=== PATIENT | male | born 1930 | race Caucasian/White ===

== ENCOUNTER 2017-06-13 13:37 | Inpatient (IN) | payer MEDICARE, MEDICAID ==
[~2017-06-13] VITALS: Ht 173 cm; Wt 69.0 kg
--- NOTE | ~2017-06-13 | PR ---
[place], [place] PROGRESS NOTE NAME: MINAL MICHELLE UNIT #: [id number] ROOM: 404 DOCTOR: BERNARDINO GHOSH MD BIRTHDATE: [birth year] DOS: 06/19/2017 PULMONARY PROGRESS NOTE SUBJECTIVE: The patient has been noted comfortable at this time without any distress. Shortness of breath continues to resolve. The patient has been noted with minimal cough. There were no symptoms of chest pain. OBJECTIVE: VITAL SIGNS: For the patient which were recorded showed normal temperature, respiratory rate 20, heart rate 70, blood pressure 132/64. Pulse oxygen saturation on room air was noted 98% saturation at this time. HEENT: Examination showed no new change. NECK: Supple. CARDIOVASCULAR: S1, S2 audible. LUNGS: The patient was noted without any wheezing, minimal crackles noted in lung bases bilaterally, more on the left than the right side. ABDOMEN: Soft. Nontender. LABORATORY DATA: CMP today, BUN 28, creatinine 1.48. CBC this morning was noted hemoglobin of 11.4, hematocrit 34.6, WBC count and platelet count was normal. IMPRESSION: 1. The patient who has been currently noted with progressive improvement in the acute hypoxic respiratory failure after thoracentesis currently noted on room air of oxygen with normal oxygen saturation at rest. 2. Resolving pleural fluid after thoracentesis. 3. Improving acute kidney injury gradually as well. 4. Severe systolic dysfunction with congestive heart failure and moderate mitral valve regurgitation as well. PLAN OF MANAGEMENT: No changes from the pulmonary standpoint. Continue current therapy, plan and management for the patient at this time. All other treatment, plan and therapy as in progress will be continued. Usual care, other supportive plan of management and treatment. [place], [place] PROGRESS NOTE NAME: MINAL MICHELLE UNIT #: [id number] ROOM: 404 DOCTOR: BERNARDINO GHOSH MD BIRTHDATE: [birth year] BERNARDINO WADE MD CM:PNTRANS [id number] BERNARDINO GRIFFITH MD 06/19/17 1042 interface
--- NOTE | ~2017-06-13 | PROC NOTE ---
[place], [place] PROCEDURE NOTE NAME: MINAL MICHELLE [facility] #: [id number] UNIT #: [id number] ROOM: 404 DOCTOR: MAURO GRIFFITH MD,BERNARDINO BIRTHDATE: [birth year] DOS: 06/16/2017 PROCEDURE #1: Right-sided thoracentesis. PREOPERATIVE DIAGNOSIS: Large right pleural fluid. POSTOPERATIVE DIAGNOSES: Removal of 1150 mL pleural fluid from the right pleural space without any complications. PROCEDURE DESCRIPTION: Informed consent obtained from the patient. The patient was placed in sitting position. Ultrasound of the chest was performed. The site of thoracentesis, the right posterior lower chest wall was marked. The skin was cleaned with chlorhexidine solution. After that 1% lidocaine was administered in the skin and intercostal space without any difficulty. Small amount of fluid was aspirated in the syringe. After that small incision given in the skin. Turkel thoracentesis catheter introduced through the incision into the right pleural space without any difficulty. The procedure was completed with removal of 1150 mL in the vacuum bottle and in the syringe. The specimens for this patient was sent to the laboratory as well. The procedure was tolerated without any complications. PROCEDURE #2: Left-sided thoracentesis. PREOPERATIVE DIAGNOSIS: Large left pleural fluid. POSTOPERATIVE DIAGNOSES: Removal of 950 mL pleural fluid from the left pleural space without any complications. PROCEDURE DESCRIPTION: Informed consent obtained from the patient. The patient was placed in sitting position. Ultrasound of the chest was performed. The site of thoracentesis, the left posterior lower chest wall was marked. The skin was cleaned with chlorhexidine solution. After that 1% lidocaine was administered in the skin and intercostal space without any difficulty. Small amount of fluid was aspirated in the syringe. After that small incision given in the skin. Turkel thoracentesis catheter introduced through the incision into the left pleural space without any difficulty. The procedure was completed with removal of 950 mL in the vacuum bottle and in the syringe. The specimens for this patient was sent to the laboratory as well. The procedure was tolerated without any complications. NOTE: Chest x-ray for the patient was ordered that was completed and personally reviewed. The chest x-ray shows marked re-expansion of the lungs with the resolution of the pleural fluid bilaterally. Pacemaker was noted in place. Minimal fluid with area of atelectasis noted in the left lower lung. The right lung was noted clear. There was no evidence of pneumothorax. [place], [place] PROCEDURE NOTE NAME: MINAL MICHELLE UNIT #: [id number] ROOM: [facility] DOCTOR: MAURO GRIFFITH MD,BERNARDINO BIRTHDATE: [birth year] BERNARDINO WADE MD CM:PROCNOTE:PROCEDURE NOTE [id number] BERNARDINO RGIFFITH MD
--- NOTE | ~2017-06-13 | PR ---
[place], [place] PROGRESS NOTE [id number] UNIT #: [id number] ROOM: 404 DOCTOR: MAURO GRIFFITH MD,BERNARDINO BIRTHDATE: [birth year] DOS: 06/18/2017 PULMONARY PROGRESS NOTE SUBJECTIVE: She has been noted comfortable at this time, resting on the bed. The patient denies symptoms of chest pain, coughing or any sputum expectoration. OBJECTIVE: VITAL SIGNS: For the patient which were recorded showed the temperature noted as normal, respiratory rate 18, heart rate 70, blood pressure 124/80. Pulse oxygen saturation on room air 95% saturation recorded. HEENT: No acute change. NECK: Supple. CARDIOVASCULAR: S1, S2 audible. LUNGS: Noted clear. ABDOMEN: Soft, nontender. LABORATORY DATA: Echocardiogram that was completed yesterday; evidence of moderate mitral valve regurgitation was also noted. Mild to moderate tricuspid regurgitation was also noted. CMP of this morning, BUN 31, creatinine 1.55. Chest x-ray shows further resolution of pleural fluid on today's x-ray. The lungs were noted clear. Cardiomegaly was seen. IMPRESSION: Resolving acute kidney injury with resolving acute congestive heart failure, noted with the systolic dysfunction. The pleural fluid noted consistent with transudative effusion which was removed with thoracentesis. PLAN OF TREATMENT: Maximize the medical management of congestive heart failure with systolic dysfunction as well as history of moderate mitral valve regurgitation. Other supportive plan of management and monitoring the kidney functions intermittently. Usual care. BERNARDINO WADE MD CM:PNTRANS [id number] BERNARDINO GRIFFITH MD 06/18/17 1232 interface
--- NOTE | ~2017-06-13 | PR ---
[place], [place] PROGRESS NOTE NAME: MINAL MICHELLE UNIT #: [id number] ROOM: 404 DOCTOR: BERNARDINO GHOSH MD BIRTHDATE: [birth year] DOS: 06/17/2017 PULMONARY FOLLOWUP SUBJECTIVE: He has a bilateral thoracentesis completed yesterday successfully resulting in improvement in the cough and symptoms of shortness of breath. The patient denies symptoms of chest pain or hemoptysis. OBJECTIVE: VITAL SIGNS: Normal temperature this morning, respirations 18, heart rate 69, blood pressure 104/58. Pulse oxygen saturation noted on room air 95% saturation. HEENT: Shows age-related changes. NECK: Supple. CARDIOVASCULAR: S1, S2 audible. LUNGS: Noted without any crackles, rhonchi, or wheezing. ABDOMEN: Soft and nontender. LABORATORY DATA: Analysis of the pleural fluid for the patient, the right and the left pleural fluids were noted both transudative pleural effusion with the chemistry and assessment of the cell count. Chest x-ray post-procedure shows significant improvement in the pleural fluid, reexpansion of the lung with small remaining left pleural fluid. CMP this morning, BUN noted 36, creatinine 1.89. Carbon dioxide of 19. Culture of the pleural fluid both sides shows ____ no bacterial growth. There were no abnormal organisms seen in either of the pleural fluids. IMPRESSION: Acute congestive heart failure with bilateral pleural fluids, acute kidney secondary to diuretic therapy. PLAN OF MANAGEMENT: No changes in the plan of management for this patient at this time. Lasix has been discontinued because of the elevation of creatinine. Continue to maximize the cardiac etiology. Supportive therapy, plan of management and other care. Usual treatment, other therapies as in progress. [place], [place] PROGRESS NOTE NAME: MINAL MICHELLE UNIT #: [id number] ROOM: 404 DOCTOR: BERNARDINO GHOSH MD BIRTHDATE: [birth year] BERNARDINO WADE MD CM:PNTRANS [id number] BERNRADINO GRIFFITH MD 06/17/17 1229 interface
--- NOTE | ~2017-06-13 | DS ---
[place], [place] DISCHARGE SUMMARY NAME: MINAL MICHELLE UNIT #: [id number] ROOM: 404 DOCTOR: SHAW COXSERENA BIRTHDATE: [birth year] DOS: 06/19/2017 DIAGNOSES: 1. Bilateral pneumonia, possible gram negative with bilateral pleural effusions. 2. Thoracentesis of about 800-1000 mL bilaterally. 3. Enterococcus faecalis of the urine. 4. Hypothyroidism. 5. Adult failure to thrive. 6. History of pacemaker placement for history of atrial fibrillation. HOSPITAL COURSE: The patient is 87-year-old. The patient comes in with complaints of difficulty breathing. He was diagnosed with CHF in the Emergency Room, but the patient did not appear to have any CHF on exam. He had diffuse wheezing, breathing treatment was started, antibiotics were ordered and the patient was arranged to have a CT of the chest that showed presence of bilateral pneumonia with pleural effusion. Further antibiotic adjustments were made. Dr. Kelly was consulted. Thoracentesis, about 800 mL of fluid was removed from the right side about 1000 from the left side. The patient tolerated the procedure very well. Repeat chest x-ray shows clearing of the fluid and chest x-ray also shows improvement in the pneumonia. Labs all within normal limits. The patient was confused in the beginning. He is back to his baseline. Urine culture shows Enterococcus faecalis, which is sensitive to penicillin, which he has been started on. The patient is stable and improved and is not having any new problems. Liver enzymes were elevated, possibly from underlying infectious process. This has normalized and does not need any further testing. Plan is to discharge him to home today, to follow up as an outpatient. His echocardiogram shows mild left ventricular hypertrophy with moderate MR. He has been placed on low dose Coreg, which will be continued at the [place] [facility]. DISCHARGE MEDICATIONS: Coreg 3.125 mg twice a day, amoxicillin 500 q. 8 hours for 7 days, breathing treatments with DuoNeb q. 8 hours p.r.n. for shortness of breath, Robitussin 10 q. 6 hours p.r.n. for cough, Tylenol 650 q. 6 hours p.r.n. for fever, levothyroxine 75 mcg daily, vitamin D 1000 units daily, iron 325 daily. [place], [place] DISCHARGE SUMMARY NAME: MINAL MICHELLE UNIT #: [id number] ROOM: [facility] DOCTOR: SERENA SQUIRES MD BIRTHDATE: [birth year] SERENA SQUIRES MD CM:ELMIRA [id number] SERENA SQUIRES MD 06/19/17 1459 interface
--- NOTE | ~2017-06-13 | CON ---
[place], [place] REPORT OF CONSULTATION NAME: MINAL MICHELLE [facility] #: [id number] UNIT #: [id number] ROOM: 404 DOCTOR: UZIEL COXABBIE BIRTHDATE: [birth year] DOS: 06/18/2017 HISTORY OF PRESENT ILLNESS: The patient is a 87-year-old gentleman with a known history of permanent pacemaker, who developed some pain at the site of the pacemaker site. Hence, I was consulted for that by Dr. Adilene Barnett. The patient has done quite well from the cardiac point of view. The patient is being treated for bilateral pneumonia, pleural effusion, status post thoracentesis by Dr. Kelly. Also, has history of hypertension, permanent pacemaker. We are going to have the pacemaker interrogated. Also get an echocardiogram. Right now, the patient appears to be very comfortable. Denies any chest discomfort, shortness of breath or palpitations. Complains of soreness at the site of the permanent pacemaker, which has been there for a long time. The patient is staying in a [facility] facility and has been noted with past stroke with weakness of the lower extremities. REVIEW OF SYSTEMS: CONSTITUTIONAL: Fatigue and tiredness. HEENT: No visual disturbances or hearing problems. CARDIOVASCULAR: As described in HPI. GASTROINTESTINAL: No nausea, no vomiting. GENITOURINARY: No dysuria, hematuria. NEUROLOGICALLY: Stable. PAST MEDICAL HISTORY: Significant for hypertension, history of CVA, history of colon cancer, status post colectomy. PAST SURGICAL HISTORY: Resection of the colon, cholecystectomy as above, prostate surgery. SOCIAL HISTORY: The patient is a retired pharmacist. Denies any alcohol or tobacco abuse. FAMILY HISTORY: Unknown. HOME MEDICATIONS: Clindamycin, Xopenex, metoprolol, lisinopril, Vicodin, Mucinex and ____. PHYSICAL EXAMINATION: GENERAL: The patient is alert, oriented x 3. HEENT: Unremarkable. NECK: Supple, no JVD. LUNGS: Diminished breath sounds. HEART: Sounds are regular. ABDOMEN: Soft, nontender. NEUROLOGICAL: Stable. DIAGNOSTIC: EKG shows paced rhythm. LABORATORY DATA: Shows hemoglobin 12.2, hematocrit 37.5. BUN and creatinine of 36 and 1.8, glucose is 92. Chest x-ray shows no pneumothorax following [place], [place] REPORT OF CONSULTATION NAME: MINAL MICHELLE UNIT #: [id number] ROOM: 404 DOCTOR: UZIEL COX,ABBIE BIRTHDATE: [address] scan showed large bilateral pleural effusion. Heart is enlarged without any pericardial effusion, moderate to large bilateral pleural effusion, bilateral infiltrate in the upper lobes and the left lower lobe also. IMPRESSION: The patient with pneumonia, permanent pacemaker, hypertension, and hyperlipidemia. RECOMMENDATIONS: We will make sure that the pacemaker is interrogated if it is not done within the last 6 months. We will get an echocardiogram. Continue the beta blockers as ordered and I will closely follow up with you. ABBIE TRIPLETT MD CM:CONSTR:REPORT OF CONSULTATION 6 06/18/17806 interface
--- NOTE | ~2017-06-13 | PR ---
[place], [place] PROGRESS NOTE NAME: MINAL MICHELLE [facility] #: [id number] UNIT #: [id number] ROOM: 404 DOCTOR: SERENA SQUIRES MD BIRTHDATE: [birth year] DOS: 06/18/2017 SUBJECTIVE: The patient is about the same. He had an uneventful night. This morning, he is getting his breathing treatment and he did wake up and did try to communicate. OBJECTIVE: VITAL SIGNS: Blood pressure is 119/65, pulse of 70, respirations 18, temperature 98.0. LUNGS: Diminished breath sounds, clear. HEART: Regular. ABDOMEN: Obese, soft, nontender. EXTREMITIES: Without any edema. ASSESSMENT AND PLAN: 1. Bilateral pneumonia with parapneumonic pleural effusions, status post thoracentesis, improving well with current treatment plan. Repeat chest x-ray will be ordered and if it shows much improvement, plan is to discharge him to [facility] tomorrow. 2. Benign hypertension with history of pacemaker. Did complain of pain at the pacer site. Dr. Grey is supposed to see him. Echocardiogram was ordered. I do not have the results. Hopefully, we will have it by tomorrow. A low dose Coreg was given. 3. Urinary tract infection with Enterococcus faecalis, responsive to penicillin. Antibiotic adjustments will be made. SERENA SQUIRES MD CM:PNTRANS [id number] SERENA SQUIRES MD 06/18/17 0754 interface
--- NOTE | ~2017-06-13 | CON ---
[place], [place] REPORT OF CONSULTATION [id number] UNIT #: [id number] ROOM: 404 DOCTOR: MAURO GRIFFITH MD,BERNARDINO BIRTHDATE: [birth year] DOS: 06/15/2017 REASON FOR CONSULTATION: To assess the patient for bilateral pleural effusions. HISTORY OF PRESENT ILLNESS: This is an 87-year-old white male. The patient noted to be a somewhat poor historian. The patient presented to the hospital Emergency Room and has been hospitalized under the care of Dr. Adilene Barnett on 06/13/2017. The patient reported symptoms of progressive increased shortness of breath with cramping in the lower legs. The patient was assessed in the Emergency Room. He [facility] and has been noted with past stroke with weakness of the lower extremities. The patient was noted to be a poor historian to some extent. However, the patient does complain of symptoms of nonproductive cough, which was to be noted mild to moderate without any sputum expectoration. Denies symptoms of chest pain, hemoptysis or angina pain. REVIEW OF SYSTEMS: CONSTITUTIONAL: Fatigue and tiredness noted without symptoms of fever or chills. EYES: Denies any burning, redness, or tenderness. EARS, NOSE, AND THROAT: Chronic earv-zu-luvxnvyo senile hearing loss without any earache, eye discharge, sore throat or hoarseness. CARDIOVASCULAR: Denies anginal pain, palpitations, edema of the lower extremities. GASTROINTESTINAL: Denies dysphagia, nausea, vomiting, diarrhea, abdominal pain, hematemesis, melena. GENITOURINARY: Denies dysuria, suprapubic pain, hematuria. SKIN: Denies lesions or rashes. MUSCULOSKELETAL: Denies acute joint pain, redness, or tenderness. CENTRAL NERVOUS SYSTEM: No dizziness, headache, diplopia, syncopal episodes or tingling sensation of the extremities. The remaining systems were rather reviewed with the patient and they were noted all negative. PAST MEDICAL HISTORY: The patient was known with history of: 1. Essential hypertension. 2. Degenerative arthritis. 3. Acute past history of a stroke. 4. History of colon cancer, status post partial colectomy. 5. History of BPH. PAST SURGICAL HISTORY: Noted with surgery of: 1. Resection of the colon. 2. Cholecystectomy. 3. History of laser of the prostate gland. SOCIAL HISTORY: The patient is a retired pharmacist. Denies history of alcohol or illicit drug use. Tobacco use. FAMILY HISTORY: Father from complication related to the brain aneurysm, history about the mother was unknown. [place], [place] REPORT OF CONSULTATION NAME: MINAL MICHELLE UNIT #: [id number] ROOM: [facility] DOCTOR: MAURO GRIFFITH MD,BERNARDINO BIRTHDATE: [birth year] HOME MEDICATIONS: From the assisted noted as use of clindamycin, Xopenex, metoprolol tartrate, lisinopril, Vicodin, Mucinex and sennoside. ALLERGIES: No known drug allergies. PHYSICAL EXAMINATION: GENERAL: This is an 87-year-old male who has been currently noted awake and alert without any distress. Height of 5 feet 8 inches, weight of 160 pounds, BMI 24.3. VITAL SIGNS: Normal temperature since admission, respiratory rate 18-20, heart rate 70-69, blood pressure 152/66 -136/61. Intake for the patient recorded 520, output 400 mL in the past 24 hours, pulse oxygen saturation noted at 86% on room air, currently noted on 2 liters as 98% saturation. HEENT: Examination shows no new change. Head was atraumatic. Eyes nonicterus. NECK: Supple. CARDIOVASCULAR: S1, S2 audible. LUNGS: Absent breath sounds noted in lower portion of the lungs bilaterally without any wheezing or crackles. ABDOMEN: Flat, soft, nontender. EXTREMITIES: No edema. CENTRAL NERVOUS SYSTEM: Cranial nerves 2-12 intact. No focal deficit. MUSCULOSKELETAL: No deformities. SKIN: No lesions or rashes. LABORATORY DATA: CBC of the patient that was done on admission 06/13/2017, hemoglobin 12.2, hematocrit 37.5, WBC count and platelet count was normal. The lactic acid noted at 1.7 on 06/13/2017. On 06/13/2017, BMP: Sodium of 131, BUN of 30, creatinine 1.60. Remaining electrolytes normal. AST mildly elevated at 40. The INR noted 1.2 on 06/13/2017. The BMP of the patient that was done yesterday shows BUN 30, creatinine 1.58. CT scan of the head for this patient that was done on admission 06/13/2017 for this patient described no acute intracranial pathologies. Moderate chronic ischemic degenerative changes of the white matter was reported. Chest x-ray shows evidence of bilateral pleural fluid with possibility of a congestive heart failure. CT scan of the chest, which was done without contrast yesterday shows moderate sized bilateral pleural fluid with area of compression, atelectasis as well as interstitial edema, possibility of acute pneumonia. Mild mediastinal lymphadenopathy was also noted. IMPRESSION: 1. The patient has been currently admitted to the hospital with findings of acute congestive heart failure with bilateral pleural fluid. 2. Acute kidney injury, considered most likely secondary to congestive heart failure and intravascular volume depletion. 3. Pulmonary infiltration most likely related to interstitial edema, congestive heart failure rather than pneumonia. 4. The patient with a history of essential hypertension as well. 5. Very mild anemia was noted as well. [place], [place] REPORT OF CONSULTATION NAME: MINAL MICHELLE UNIT #: [id number] ROOM: [facility] DOCTOR: BERNARDINO GHOSH MD BIRTHDATE: [birth year] PLAN OF MANAGEMENT: The patient would be considered for diuretic therapy and cardiac assessment. He will be started on Lasix 40 mg daily. Antibiotic may be discontinued if the culture results will be noted negative. Thoracentesis was planned to be done in the morning for this patient with ultrasound assessment. Supportive plan of management and care. The patient was agreeable for the procedure at this time for the thoracentesis. Other supportive plan and management as in progress. Usual medical management, other therapies. Monitor kidney functions closely because of the Lasix. Thanks for allowing me to participate in the care of this patient. BERNARDINO WADE MD CM:CONSTR:REPORT OF CONSULTATION 1455 06/17/17 0448 interface
--- NOTE | ~2017-06-13 | PR ---
[place], [place] PROGRESS NOTE NAME: MINAL MICHELLE [facility] #: [id number] UNIT #: [id number] ROOM: 404 DOCTOR: SERENA SQUIRES MD BIRTHDATE: [birth year] DOS: 06/19/2017 SUBJECTIVE: The patient is much improved, back to his baseline, does not have any complaints today. OBJECTIVE: VITAL SIGNS: Blood pressure is 123/79, pulse of 76, respirations 18, temperature 97.9. LUNGS: Diminished breath sounds, clear. HEART: Irregular. ABDOMEN: Obese, soft. EXTREMITIES: Without any edema. ASSESSMENT AND PLAN: 1. Bilateral pneumonia, possible gram negative with bilateral pleural effusion, status post thoracentesis and removal of about 800 to 1000 mL bilaterally. The patient's repeat chest x-ray shows improvement. The plan therefore is to discharge him to home on antibiotics. 2. Urinary tract infection with Enterococcus, on amoxicillin. P[facility]. [facility]. 3. Acute hypoxic respiratory failure on admission, which is resolved and the patient is back to his normal self. He does not require any more oxygenation. 4. No oxygen supplementation 5. Hypothyroidism, back on medications. SERENA SQUIRES MD CM:PNTRANS 0736 3 SERENA SQUIRES MD 06/19/17823 interface
--- NOTE | ~2017-06-13 | PR ---
[place], [place] PROGRESS NOTE [id number] #: [id number] ROOM: 404 DOCTOR: SERENA SQUIRES MD BIRTHDATE: [birth year] DOS: 06/17/2017 SUBJECTIVE: The patient is much better than yesterday. He is more awake and alert and oriented. He is able to communicate better. OBJECTIVE: VITAL SIGNS: Blood pressure is 104/58, pulse is 69, respirations 18, temperature 97.5. LUNGS: Diminished breath sounds. No wheezes, rales or rhonchi heard. HEART: Regular. ABDOMEN: Soft. EXTREMITIES: Without any edema. ASSESSMENT AND PLAN: 1. Bilateral pneumonia with pleural effusion, status post thoracentesis yesterday and the patient is much improved today. Appreciate Dr. Kelly's input. 2. Benign hypertension. A low dose of Coreg was added. 3. History of pacemaker placement. The patient has not had a pacemaker check for many years, will ask Dr. Hamilton for an opinion. 4. Abnormal LFTs, possibly from underlying infectious process with hepatic venous congestion. I will go ahead and arrange for a liver scan and hepatitis profile. SERENA SQUIRES MD CM:PNTRANS 2 7 SERENA SQUIRES MD 06/17/17927 interface
--- NOTE | ~2017-06-13 | PR ---
[place], [place] [facility]GRESS NOTE [id number] #: [id number] ROOM: 404 DOCTOR: SERENA SQUIRES MD BIRTHDATE: [birth year] DOS: 06/13/2017 SUBJECTIVE: The patient states that he has never been this sick, then he falls asleep easily and he wakes up in the middle of the examination, states that he still has a cough. OBJECTIVE: VITAL SIGNS: Graphic trend shows a pressure of 136/61, pulse of 69, respirations 18, temperature 97.6. LUNGS: Diminished breath sounds. Scattered wheezes heard. HEART: Regular. ABDOMEN: Obese. EXTREMITIES: Without any edema. CT of the chest shows moderate to large pleural effusions with bilateral pneumonia and mediastinal adenopathy. ASSESSMENT AND PLAN: 1. Pneumonia with pleural effusion on IV antibiotics. Dr. Kelly has been consulted for possible thoracentesis. 2. The patient admitted with congestive heart failure. No evidence of congestive heart failure noted on the CT scan. This is mostly pneumonia with effusion. IV diuretics were given. This could be discontinued soon. 3. Adult failure to thrive. We will discuss with family members with regards to extend the care if that is required. SERENA SQUIRES MD CM:PNTRANS [phone] SERENA SQUIRES MD 06/15/17 1238 interface
--- NOTE | ~2017-06-13 | PR ---
[place], [place] PROGRESS NOTE NAME: MINAL MICHELLE UNIT #: [id number] ROOM: 404 DOCTOR: BERNARDINO GHOSH MD BIRTHDATE: [birth year] DOS: 06/16/2017 PULMONARY FOLLOWUP SUBJECTIVE: He has been noted comfortable since he was started on diuretic therapy yesterday in the last 24 hours. He has been noted some negative for balance with that. Denies symptoms of chest pain or any abdominal pain. Shortness of breath with a nonproductive cough. OBJECTIVE: VITAL SIGNS: For the patient which has been recorded showed the temperature noted normal, respirations 22, heart rate 70, blood pressure 104/64 this morning. Intake was 675, output 826 mL. Pulse oxygen saturation on 2 liters nasal cannula 95% saturation. HEENT: Showed no new change. NECK: Supple. CARDIOVASCULAR: S1, S2 audible. LUNGS: Noted decreased breath sounds are previously noted. Scattered crackles. ABDOMEN: Soft, nontender. LABORATORY DATA: CMP that was done this morning shows BUN 40, creatinine 1.58. Sodium 132. AST 85, ALT 131, alkaline phosphatase 181. IMPRESSION: 1. The patient with bilateral pleural fluid with acute congestive heart failure with possibility of acute bronchitis, compression atelectasis, rule out pneumonia. 2. Resolving ____. PLAN OF MANAGEMENT: Thoracentesis was planned to be done with the ultrasound guidance today. The pleural fluids were already assessed personally with the ultrasound of the patient at the bedside. Moderate to large pleural fluids were noted bilaterally. Other treatment changes, intervention if necessary will be done after the completion of the thoracentesis. [place], [place] PROGRESS NOTE NAME: MINAL MICHELLE UNIT #: [id number] ROOM: 404 DOCTOR: BERNARDINO GHOSH MD BIRTHDATE: [birth year] BERNARDINO WADE MD CM:PNTRANS [id number] BERNARDINO GRIFFITH MD 06/17/17 0508 interface
--- NOTE | ~2017-06-13 | WRIGHTHP ---
[place], [place] PATIENT HISTORY AND PHYSICAL EXAM NAME: MINAL MICHELLE [facility] #: [id number] UNIT #: [id number] ROOM: 404 DOCTOR: SERENA SQUIRES MD BIRTHDATE: [birth year] DOS: 06/13/2017 HISTORY OF PRESENT ILLNESS: The patient is 87 years old, is a resident of [facility]. The patient told the nurses that he felt that he was having stroke with weakness of his leg. He was sent to the Emergency Room where he did not have any weakness, but seems to have increasing shortness of breath. He also stated that he had lot of cramps in his legs. He was evaluated in the ER, was found to have congestive heart failure, and was admitted. This morning, he tries to converse, but he is unable to verbalize. He denies having any chest pains or palpitations. He does not have any fever or chills, does have a cough, which is productive of scant amounts of white sputum. Denies having any nausea, any emesis or leg edema. PAST MEDICAL HISTORY: 1. Nonsignificant and other than adult failure to thrive, he does not take any medications. 2. History of benign hypertension, but the patient has not taken any medications for years. SOCIAL HISTORY: Nonsmoker, does not use any alcohol. PHYSICAL EXAMINATION: GENERAL: The patient again is awake, alert and oriented, does try to communicate, but he seems to have a hard time verbalizing. He appears to be quite short of breath. VITAL SIGNS: Graphic trend shows a pressure of 151/75, pulse of 71, respirations 18, temperature 98.5. LUNGS: Diminished breath sounds, scattered wheezes and rhonchi. HEART: Regular. ABDOMEN: Soft, scaphoid. EXTREMITIES: Without any edema. CT of the head was negative. White cell count is normal at 12.2. Hemoglobin is 12.2. Lactic acid is normal. Chest x-ray shows evidence of [id number] pulmonary vascular congestion. Comprehensive glucose 99, BUN 30, creatinine 1.60, sodium 131, potassium 4.1. SGOT was 40. ASSESSMENT AND PLAN: 1. This is a patient who has acute congestive heart failure, most likely diastolic. Echocardiogram has been ordered along with a cardiology consultation. 2. History of benign hypertension and has not been taking any medications for a long time. An echo is being ordered. We will add low dose of Coreg. 3. Adult failure to thrive. PT/OT will be consulted. There is no evidence of any acute cerebrovascular accident. 4. Cough with increased mucus production, possibly from underlying congestive heart failure, but we will need to rule out pneumonia. CT of the chest without contrast is ordered. [place], [place] PATIENT HISTORY AND PHYSICAL EXAM NAME: MINAL MICHELLE UNIT #: [id number] ROOM: 404 DOCTOR: SERENA SQUIRES MD BIRTHDATE: [birth year] SERENA SQUIRES MD CM:HISPHYS:PATIENT HISTORY AND PHYSICAL EXAMINATION [id number] SERENA SQUIRES MD 06/14/17 1002 interface
--- NOTE | ~2017-06-13 | PR ---
[place], [place] PROGRESS NOTE NAME: MINAL MICHELLE UNIT #: [id number] ROOM: 404 DOCTOR: SERENA SQUIRES MD BIRTHDATE: [birth year] DOS: SUBJECTIVE: The patient is not having any new complaints. He appears to be quite short of breath this morning and appeared to be quite sleepy. OBJECTIVE: VITAL SIGNS: Graphic trend shows a pressure of 145/61, pulse is 66, respirations 21, temperature 97.4. LUNGS: Diminished breath sounds, scattered rales heard. HEART: Regular. ABDOMEN: Obese, soft. EXTREMITIES: Without any edema. ASSESSMENT AND PLAN: 1. The patient who presents with bilateral pneumonia on IV antibiotics. 2. Bilateral pleural effusions, awaiting thoracentesis. 3. History of hypertension. Echocardiogram was ordered. I do not have the results of that. A low dose Coreg was given. SERENA SQUIRES MD CM:PNTRANS [id number] SERENA SQUIRES MD 06/16/17 0947 interface
[2017-06-13 13:37] VITALS: BP 155/74
[~2017-06-13 13:37] MED LIST: ACETAMINOPHEN-H1 TA2 PO; CARAFATE1 G1 PO; Cleocin150 MG PO; LISINOPRIL10 M1 PO; LISINOPRIL10 MG PO; MAPAP325 MG PO; METOPROLOL TART50 M1 PO; MUCINEX ER600 MG PO; PROTONIX40 MG PO; SENNA8.6 MG PO; XOPENEX0.63 MG NEB
[2017-06-13 14:30] LABS: BILIRUBIN NEGATIVE (NEGATIVE); BLOOD 1+ (NEGATIVE); CLARITY SL CLOUDY (CLEAR); COLOR YELLOW (YELLOW); GLUCOSE NEGATIVE (NEGATIVE); KETONE NEGATIVE (NEGATIVE); LEUKO ESTERASE 2+ (NEGATIVE); NITRITE NEGATIVE (NEGATIVE); PH 5.5 (5.0-9.0); PROTEIN TRACE (NEGATIVE); SPECIFIC GRAVITY 1.025 (1.005-1.030); UROBILINOGEN 0.2 E.U./dl (0.2-1.0)
[2017-06-13 14:38] LABS: BASO # 0.1 10*3/uL (0.0-0.1); BASO % 0.8 % (0.0-1.0); EOS # 0.2 10*3/uL (0.0-0.4); EOS % 2.4 % (1.0-4.0); HEMATOCRIT 37.5 % (42.0-52.0); HEMOGLOBIN 12.2 g/dl (14.0-18.0); LYMPH # 1.4 10*3/uL (1.3-4.4); LYMPH % 15.5 % (27.0-41.0); MEAN CELL VOLUME 94.5 fl (80.0-94.0); MEAN CORPUSCULAR HGB 30.7 pg (27.0-31.0); MEAN CORPUSCULAR HGB CONC 32.5 g/dl (33.0-37.0); MEAN PLATELET VOLUME 10.9 fl (9.6-12.3); MONO # 0.7 10*3/uL (0.1-1.0); NEUT # 6.5 10*3/uL (2.3-7.9); NEUT % 73.1 % (47.0-73.0); PLATELET COUNT AUTOMATED 177 10*3/uL (130-400); RED BLOOD COUNT 3.97 10*6/uL (4.50-5.90); RED CELL DISTRI WIDTH 14.3 % (0-14.5); WHITE BLOOD COUNT 8.9 10*3/uL (4.8-10.8)
[2017-06-13 14:43] LABS: BACTERIA 4+; RBC 16-20 rbc/hpf (0-2); URINE REFLEX COMMENT YES (NO); WBC TNTC wbc/hpf (0-5)
[2017-06-13 14:45] LABS: INTERNATIONAL NORM RATIO 1.2 (2.0-3.5); PROTHROMBIN TIME 13.4 SECONDS (9.0-12.4)
[2017-06-13 15:14] LABS: ALBUMIN 3.5 gm/dl (3.1-4.5); BILIRUBIN, TOTAL 0.3 mg/dl (0.2-1.0); MAGNESIUM 2.1 mg/dL (1.5-2.1); POTASSIUM 4.1 mmol/L (3.5-5.1); TOTAL PROTEIN 7.2 gm/dL (6.4-8.2)
[2017-06-13 15:15] LABS: CKMB 3.5 ng/ml (0.5-3.6); TROPONIN I 0.026 ng/ml (<0.045)
[2017-06-13 16:57] VITALS: BP 157/69
[2017-06-13 17:23] VITALS: BP 161/77
[2017-06-13 18:00] VITALS: BP 161/77
[2017-06-14] VITALS: BP 131/75
[2017-06-14 08:00] VITALS: BP 149/73
[2017-06-14 12:00] VITALS: BP 142/82
[2017-06-14 16:00] VITALS: BP 129/62
[2017-06-14 20:00] VITALS: BP 128/78
[2017-06-15] VITALS: BP 136/61
[2017-06-15 08:00] VITALS: BP 152/66
[2017-06-15 09:58] LABS: BILIRUBIN NEGATIVE (NEGATIVE); BLOOD 1+ (NEGATIVE); CLARITY CLEAR (CLEAR); COLOR YELLOW (YELLOW); GLUCOSE NEGATIVE (NEGATIVE); KETONE TRACE (NEGATIVE); LEUKO ESTERASE TRACE (NEGATIVE); NITRITE NEGATIVE (NEGATIVE); PH 5.5 (5.0-9.0); PROTEIN TRACE (NEGATIVE); SPECIFIC GRAVITY 1.025 (1.005-1.030); UROBILINOGEN 0.2 E.U./dl (0.2-1.0)
[2017-06-15 10:13] LABS: BACTERIA 1+; RBC 21-30 rbc/hpf (0-2); URINE REFLEX COMMENT YES (NO); WBC 51-100 wbc/hpf (0-5)
[2017-06-15 12:00] VITALS: BP 102/77
[2017-06-15 16:00] VITALS: BP 121/67
[2017-06-15 20:00] VITALS: BP 120/66
[2017-06-16] VITALS (7 sets, daily range): BP systolic 96–146; BP diastolic 48–72
[2017-06-16 06:20] LABS: ALBUMIN 3.1 gm/dl (3.1-4.5); BILIRUBIN, TOTAL 0.4 mg/dl (0.2-1.0); TOTAL PROTEIN 6.4 gm/dL (6.4-8.2)
[2017-06-16 12:37] LABS: BODY FLUID RBC < 1000 /uL; BODY FLUID WBC 98 /uL
[2017-06-16 12:42] LABS: BODY FLUID RBC < 1000 /uL; BODY FLUID WBC 109 /uL
[2017-06-16 12:50] LABS: BODY FLUID ALBUMIN 1.1 g/dL; BODY FLUID AMYLASE 16 U/L; BODY FLUID CHOLESTEROL < 50 mg/dl; BODY FLUID GLUCOSE 101 mg/dl; BODY FLUID LDH 79 IU/L; BODY FLUID PROTEIN 1.5 g/dl; BODY FLUID TRIGLYCERIDE 3 mg/dl
[2017-06-16 12:51] LABS: BODY FLUID ALBUMIN 0.9 g/dL; BODY FLUID AMYLASE 17 U/L; BODY FLUID CHOLESTEROL < 50 mg/dl; BODY FLUID GLUCOSE 102 mg/dl; BODY FLUID LDH 67 IU/L; BODY FLUID PROTEIN 1.4 g/dl; BODY FLUID TRIGLYCERIDE < 2 mg/dl
[2017-06-16 13:31] LABS: BF LYMPHOCYTES 57 %; BF MACROPHAGES 14 %; BF MONOCYTES 3 %; BF NEUTROPHILS 26 %
[2017-06-16 13:32] LABS: BODY FLUID TYPE PLEURAL
[2017-06-16 13:46] LABS: BF LYMPHOCYTES 34 %; BF MACROPHAGES 47 %; BF MESOTHELIALS 1 %; BF NEUTROPHILS 18 %
[2017-06-16 13:48] LABS: BODY FLUID TYPE PLEURAL
[2017-06-17] VITALS: BP 117/58
[2017-06-17 04:34] LABS: ALBUMIN 3.1 gm/dl (3.1-4.5); BILIRUBIN, TOTAL 0.5 mg/dl (0.2-1.0); POTASSIUM 4.7 mmol/L (3.5-5.1); TOTAL PROTEIN 6.6 gm/dL (6.4-8.2)
[2017-06-17 08:00] VITALS: BP 104/58
[2017-06-17 12:00] VITALS: BP 127/66
[2017-06-17 16:00] VITALS: BP 112/58
[2017-06-17 20:00] VITALS: BP 124/66
[2017-06-18] VITALS: BP 119/65
[2017-06-18 07:36] LABS: ALBUMIN 2.9 gm/dl (3.1-4.5); BILIRUBIN, TOTAL 0.3 mg/dl (0.2-1.0); TOTAL PROTEIN 6.2 gm/dL (6.4-8.2)
[2017-06-18] MEDS ORDERED: LASIX20 MG PO ×2 (07:37→10:28)
[2017-06-18] MEDS ORDERED: VITAMIN D400 I1 PO (07:38)
[2017-06-18 07:46] LABS: POTASSIUM 3.7 mmol/L (3.5-5.1)
[2017-06-18 08:03] VITALS: BP 124/70
[2017-06-18] MEDS ORDERED: SYNTHROID,LEVO75 MCG PO (08:31)
[2017-06-18] MEDS ORDERED: IRON325 M1 PO (10:27)
[2017-06-18] MEDS ORDERED: K-TAB10 MEQ PO (10:30)
[2017-06-18] MEDS ORDERED: VITAMIN D34000 UNIT PO (10:31)
[2017-06-18] MEDS ORDERED: TYLENOL325 M1 PO (10:32)
[2017-06-18] MEDS ORDERED: ROBITUSSIN5 ML PO (10:32)
[2017-06-18 12:00] VITALS: BP 112/54
[2017-06-18 16:00] VITALS: BP 110/68
[2017-06-18 19:57] VITALS: BP 117/82
[2017-06-19] VITALS: BP 123/79
[2017-06-19 04:46] LABS: BASO # 0.1 10*3/uL (0.0-0.1); BASO % 0.8 % (0.0-1.0); EOS # 0.9 10*3/uL (0.0-0.4); EOS % 10.3 % (1.0-4.0); HEMATOCRIT 34.6 % (42.0-52.0); HEMOGLOBIN 11.4 g/dl (14.0-18.0); LYMPH # 1.8 10*3/uL (1.3-4.4); LYMPH % 21.1 % (27.0-41.0); MEAN CELL VOLUME 91.8 fl (80.0-94.0); MEAN CORPUSCULAR HGB 30.2 pg (27.0-31.0); MEAN CORPUSCULAR HGB CONC 32.9 g/dl (33.0-37.0); MEAN PLATELET VOLUME 11.4 fl (9.6-12.3); MONO # 0.7 10*3/uL (0.1-1.0); MONO % 8.7 % (3.0-9.0); NEUT # 4.9 10*3/uL (2.3-7.9); NEUT % 58.9 % (47.0-73.0); PLATELET COUNT AUTOMATED 180 10*3/uL (130-400); RED BLOOD COUNT 3.77 10*6/uL (4.50-5.90); RED CELL DISTRI WIDTH 14.6 % (0-14.5); WHITE BLOOD COUNT 8.4 10*3/uL (4.8-10.8)
[2017-06-19 05:15] LABS: ALBUMIN 2.8 gm/dl (3.1-4.5); POTASSIUM 3.8 mmol/L (3.5-5.1)
[2017-06-19 05:18] LABS: BILIRUBIN, TOTAL 0.3 mg/dl (0.2-1.0)
[2017-06-19 07:06] LABS: HEPATITIS C VIRUS ANTIBODY <0.1 s/co (0.0-0.9)
[2017-06-19] MEDS ORDERED: VITAMIN D34000 UNIT PO (07:35)
[2017-06-19] MEDS ORDERED: DUONEB 3 MG/3 ML3 M1 NEB (07:35)
[2017-06-19] MEDS ORDERED: SYNTHROID,LEVO75 MCG PO (07:35)
[2017-06-19] MEDS ORDERED: CARVEDILOL3.125 MG PO (07:35)
[2017-06-19] MEDS ORDERED: TYLENOL325 M1 PO (07:35)
[2017-06-19] MEDS ORDERED: AMOXICILLIN500 M2 PO (07:35)
[2017-06-19] MEDS ORDERED: IRON325 M1 PO (07:39)
[2017-06-19 08:00] VITALS: BP 133/64; BP 134/64
== END 2017-06-19 12:26 | disposition home or self-care (01) | DRG 177 ==
LOC: ED 13:37 → 4E 16:13 → EDHOLD 16:13 → 4E 16:39
PROVIDERS: Internal Medicine; Internal Medicine Critical Care Medicine; Physician Assistant
PROC: 0W993ZZ Drainage of Right Pleural Cavity, Percutaneous Approach (ICD-10-PCS; principal; 2017-06-16)
PROC: 0W9B3ZZ Drainage of Left Pleural Cavity, Percutaneous Approach (ICD-10-PCS; principal; 2017-06-16)
DX: J15.6 Pneumonia due to other Gram-negative bacteria (principal); I50.21 Acute systolic (congestive) heart failure; J96.01 Acute respiratory failure with hypoxia; J90 Pleural effusion, not elsewhere classified; N17.9 Acute kidney failure, unspecified; N30.01 Acute cystitis with hematuria; R59.0 Localized enlarged lymph nodes; R62.7 Adult failure to thrive; I11.0 Hypertensive heart disease with heart failure; R94.5 Abnormal results of liver function studies; T50.2X5A Adverse effect of carbonic-anhydrase inhibitors, benzothiadiazides and other diuretics, initial encounter; B95.2 Enterococcus as the cause of diseases classified elsewhere; I34.0 Nonrheumatic mitral (valve) insufficiency; M19.90 Unspecified osteoarthritis, unspecified site; N40.0 Benign prostatic hyperplasia without lower urinary tract symptoms; D64.9 Anemia, unspecified; E03.9 Hypothyroidism, unspecified; E78.5 Hyperlipidemia, unspecified; I48.91 Unspecified atrial fibrillation; Z66 Do not resuscitate; Z95.0 Presence of cardiac pacemaker; Z90.49 Acquired absence of other specified parts of digestive tract; Z82.0 Family history of epilepsy and other diseases of the nervous system; Z86.73 Personal history of transient ischemic attack (TIA), and cerebral infarction without residual deficits; Z85.038 Personal history of other malignant neoplasm of large intestine

== ENCOUNTER 2017-06-25 13:05 | Inpatient (IN) | payer MEDICARE, MEDICAID ==
[~2017-06-25] VITALS: Ht 172.7 cm; Wt 69.6 kg
--- NOTE | ~2017-06-25 | PROC NOTE ---
[place], [place] PROCEDURE NOTE NAME: MINAL MICHELLE SR UNIT #: [id number] ROOM: 420 DOCTOR: MAURO GRIFFITH MD,BERNARDINO BIRTHDATE: [birth year] DOS: 06/28/2017 PREOPERATIVE DIAGNOSES: Persistent cough and abnormal chest x-ray for acute pneumonia. POSTOPERATIVE DIAGNOSES: Removal of the multiple plugs and mucus endobronchial tree bilaterally, rule out pneumonia. DESCRIPTION OF PROCEDURE: Informed consent was obtained from the patient. The patient was brought to the OR and placed in supine position. Conscious sedation was administered by the Anesthesia Department. After achieving appropriate sedation, airway introduced into the mouth. Bronchoscope advanced to the airway into laryngeal area. Epiglottis and vocal cords were seen. Bronchoscope advanced to the vocal cord and tracheal lumen. Tracheal lumen was identified. The patient shows a small amount of secretions, which appeared to be mucoid with small amount of purulent secretions. Teresa noted sharp. Right upper, right middle, right lower, left upper, lingular lower lobe bronchi were all examined. All the secretions were cleared off endobronchial tree bilaterally. There were no endobronchial obstructive lesions. Procedure was well tolerated by the patient. Postoperative findings were discussed with the patient's son in the recovery room. No major change in treatment will be needed. Chest x-ray will be done in the morning. The patient to reassess the progression of the previously noted pulmonary infiltration. BERNARDINO WADE MD CM:PROCNOTE:PROCEDURE NOTE [phone] BERNARDINO GRIFFITH MD
--- NOTE | ~2017-06-25 | PR ---
[place], [place] PROGRESS NOTE NAME: MINAL MICHELLE SR UNIT #: [id number] ROOM: 420 DOCTOR: MAURO GRIFFITH MD,BERNARDINO BIRTHDATE: [birth year] DOS: 06/28/2017 SUBJECTIVE: He has been noted comfortable at this time, still noticing coughing, which remained nonproductive moderately. Denies any acute shortness of breath. Denies symptoms of chest pain. He was continued on antibiotics. Another treatment was continued. OBJECTIVE: VITAL SIGNS: For the patient which has been recorded shows the temperature recorded normal, respiratory rate 16, heart rate 70, blood pressure 99/48. Pulse oxygen saturation of the patient was noted on 3 liters canula 98% saturation. HEENT: Examination shows age-related changes. NECK: Supple. CARDIOVASCULAR: ____ S1, S2 audible. LUNGS: The patient was noted with decreased breath sounds noted in the lower portion of the lungs bilaterally. ABDOMEN: Soft and nontender. EXTREMITIES: Shows no edema. LABORATORY DATA: There were no labs done today. IMPRESSION: The patient who has been currently noted with suspected acute pneumonia with acute congestive heart failure with systolic dysfunction and mitral valve regurgitation. ____ bronchoscopy, severe cough and assessment of possibility of acute pneumonia and persistent nonresolving cough. PLAN OF MANAGEMENT: The patient will be continued with current plan of management. No changes in the treatment, which will be needed. Followup labs for the patient were ordered to be done tomorrow. After the bronchoscopy if any modification treatment needed, it will be done accordingly. BERNARDINO WADE MD CM:PNTRANS [phone] BERNARDINO GRIFFITH MD 06/28/17 1202 interface
--- NOTE | ~2017-06-25 | PR ---
[place], [place] PROGRESS NOTE [id number] UNIT #: [id number] ROOM: 420 DOCTOR: MAURO GRIFFITH MD,BERNARDINO BIRTHDATE: [birth year] DOS: 06/29/2017 SUBJECTIVE: He has been noted comfortable at this time without any distress. The patient had a bronchoscopy done yesterday. Reduction of symptoms of cough was noted. Denies symptoms of chest pain. The patient has been comfortably resting on his bed at this time. OBJECTIVE: VITAL SIGNS: For the patient which were recorded shows normal temperature, respirations 16, heart rate 71, blood pressure 132/71. The pulse oxygen saturation on 2 liters nasal cannula was recorded 99% saturation. HEENT: Shows no new change. NECK: Supple. CARDIOVASCULAR: S1, S2 audible. LUNGS: Noted decreased breaths in the lower portion of the lungs bilaterally. ABDOMEN: Soft, nontender. LABORATORY DATA: Spontaneous sputum culture results of 06/27/2017 shows preliminary normal sonya, final culture results were pending. Gram stain bronchial washings yesterday showed many white blood cells with few epithelial cells, few gram-positive cocci in pairs and clusters and budding yeast. The chest x-ray of the patient that was done this morning shows improvement in the aeration continued for the patient. Small bilateral pleural fluids. IMPRESSION: The patient with acute pneumonia, most likely for this patient with gram-positive infection, nonaspiration as well as congestive heart failure, which has been noted previously with small bilateral pleural fluids, all improving gradually. PLAN OF TREATMENT: Monitoring culture results. Continue the previous therapy, plan of management as in progress. Usual care, other supportive plan of therapy as well. BERNARDINO WADE MD CM:PNTRANS 1303 [id number] BERNARDINO GRIFFITH MD 06/29/17 1415 interface
--- NOTE | ~2017-06-25 | PR ---
[place], [place] PROGRESS NOTE NAME: MINAL MICHELLE SR [facility] #: [id number] UNIT #: [id number] ROOM: 420 DOCTOR: SUSIE GUTHRIE MD BIRTHDATE: [birth year] DOS: SUBJECTIVE: An 87-year-old somewhat confused. PHYSICAL EXAMINATION: VITAL SIGNS: Blood pressure 105/87, heart rate of 69 beats per minute, breathing 22 times a minute, temperature 98 degrees Fahrenheit. GENERAL APPEARANCE: The patient is alert and oriented x 3, in no visible distress. The patient is very weak. HEENT AND NECK: Exam within normal limits. CARDIOVASCULAR SYSTEM: Heart rate is regular in rate and rhythm. S1 and S2 normally audible. LUNGS: Decreased breath sounds at the bases. ABDOMEN: Soft, nontender. No obvious organomegaly. Bowel sounds are present. EXTREMITIES: Without significant cyanosis or edema. IMPRESSION: 1. Old age, mental confusion, possible early dementia and some delirium related to pneumonia. 2. Bilateral lower lung pneumonia, being treated with Levaquin by Dr. Kelly, the rn resource nurse. We will continue to follow with blood counts and sputum cultures have been ordered. The patient may require bronchoscopy. 3. Bilateral pleural effusion, recent thoracentesis by Dr. Kelly, about 1 liter of fluid was removed. 4. Adult failure to thrive. The patient resides at senior care. 5. Chronic constipation, treated and controlled with MiraLax. 6. Hypothyroidism. The patient on thyroid supplements. SUSIE GUTHRIE MD CM:PNTRANS [phone] SUSIE GUTHRIE MD 06/27/17 1514 interface
--- NOTE | ~2017-06-25 | PR ---
[place], [place] PROGRESS NOTE NAME: MINAL MICHELLE SR UNIT #: [id number] ROOM: 420 DOCTOR: BERNARDINO GHOSH MD BIRTHDATE: [birth year] DOS: 07/01/2017 SUBJECTIVE: He has been noted comfortable at this time, resting on his bed. Denies symptoms of chest pain or any abdominal pain. Shortness of breath has been gradually improving. The patient denies any symptoms of edema or pain of the lower extremities. Cough has been improved markedly. OBJECTIVE: VITAL SIGNS: Showed normal temperature, respiratory rate 18, heart rate 69, blood pressure 141/76. Pulse oxygen saturation of the patient was noted 2 liters nasal cannula 98% saturation. HEENT: Examination shows age-related changes. NECK: Supple. CARDIOVASCULAR: S1, S2 is audible. LUNGS: The patient was noted with mildly decreased breath sound in the lung bases. There was no wheezing or crackles at this time. ABDOMEN: Soft, nontender. LABORATORY DATA: BMP today: BUN 20, creatinine 1.51. Sodium was noted as 130. CBC of the patient this morning: WBC count normal, hemoglobin 12.4, hematocrit 37.5 with a platelet count normal. Blood culture from the of this month showed no bacterial growth, final culture results were pending. Chest x-ray of that was done for the patient, this morning was noted with small pleural fluid noted bilaterally for area of infiltration with compression atelectasis without any worsening. IMPRESSION: The patient was noted with continued progressive resolution of the acute symptoms of pneumonia. The patient had superimposed congestive heart failure, responding to treatment, status post bronchoscopy with significant improvement and resolution of the cough. PLAN OF TREATMENT: The patient could be discharged to the nursing facility for further continued treatment. Supportive therapy, plan of management. Usual care. Other supportive treatment as ongoing. [place], [place] PROGRESS NOTE NAME: MINAL MICHELLE SR UNIT #: [id number] ROOM: 420 DOCTOR: BERNARDINO GHOSH MD BIRTHDATE: [birth year] BERNARDINO WADE MD CM:PNTRANS [phone] BERNARDINO GRIFFITH MD 07/01/17 1716 interface
--- NOTE | ~2017-06-25 | WRIGHTHP ---
[place], [place] PATIENT HISTORY AND PHYSICAL EXAM NAME: MINAL MICHELLE SR [facility] #: [id number] UNIT #: [id number] ROOM: 420 DOCTOR: SUSIE GUTHRIE MD BIRTHDATE: [birth year] DOS: 06/25/2017 HISTORY OF PRESENT ILLNESS: 1. The patient is an 87-year-old gentleman with a past medical history of recent pneumonia, treated earlier this month. 2. Pleural effusion, status post thoracentesis earlier this month. 3. Hypothyroidism. 4. Adult failure to thrive, generalized weakness. 5. History of pacemaker placement for chronic atrial fibrillation. 6. Hypothyroidism. The patient was sent over from [facility] to the Emergency Department at [facility] with increasing shortness of breath, some cough and wheezing. The patient was found to have bilateral lower lung pneumonias on chest x-ray, which appeared to be acute and patient also had bilateral pleural effusions. The patient is recommended for admission and further management. After admission, patient stated that he is also constipated since Saturday. No chest pain, no dizziness or fainting episodes. No other GI, urinary symptoms or generalized weakness. The patient ambulates with the help of a walker. REVIEW OF SYSTEMS: LUNGS: Increased shortness of breath and wheezing and some cough. CARDIOVASCULAR: No chest pains or palpitations. GASTROINTESTINAL: No nausea, vomiting, diarrhea, but she does have constipation. FAMILY HISTORY: Noncontributory. HOME MEDICATIONS: The patient takes DuoNeb, Tylenol, Coreg, vitamin D, iron, Lasix, cough syrup, levothyroxine laxatives at [facility]. ALLERGIES: No known drug allergies. PHYSICAL EXAMINATION: GENERAL: Alert, mostly oriented x 3, in no visible distress, very weak, standard exam except for generalized weakness and decreased breath sounds at both bases with fine crackles. VITAL SIGNS: Blood pressure 144/78, heart rate 70 beats per minute, breathing 22 times per minute, temperature 98 degrees Fahrenheit. LABORATORY DATA: Chest x-ray showing bilateral lower lobe acute pneumonia and questionable bilateral pleural effusions. BUN and creatinine 24 and 1.6. IMPRESSION: 1. The patient presenting with bilateral lower lobe acute pneumonia for the second time this month. I will consult Dr. Kelly and treat with antibiotics, bronchodilator, oxygen. The patient apparently maintains a DNR comfort care code status. 2. Old age generalized weakness and adult failure to thrive. The patient [place], [place] PATIENT HISTORY AND PHYSICAL EXAM NAME: MINAL MICHELLE SR UNIT #: [id number] ROOM: 420 DOCTOR: JERRI COX,SUSIE Mitchell BIRTHDATE: [birth year] worked with physical therapy. 3. Adult failure to thrive and generalized weakness. We will take bedsore precautions, turn him every 12 hours and use an air mattress. 4. Hypothyroidism. The patient being continued on his thyroid supplements. 5. Acute over chronic constipation. I will continue as well as add MiraLax to the treatment. SUSIE GUTHRIE MD CM:HISPHYS:PATIENT HISTORY AND PHYSICAL EXAMINATION 171 20 SUSIE GUTHRIE MD 06/25/171920 interface
--- NOTE | ~2017-06-25 | PR ---
[place], [place] PROGRESS NOTE NAME: MINAL MICHELLE SR UNIT #: [id number] ROOM: 420 DOCTOR: SERENA SQUIRES MD BIRTHDATE: [birth year] DOS: 06/29/2017 SUBJECTIVE: The patient is not having any new complaints. Denies any chest pains, palpitations or shortness of breath. PHYSICAL EXAMINATION: GENERAL: The patient is awake and alert, orientation is questionable. He falls into sleep easily. VITAL SIGNS: Graphic trend shows pressure 116/65, pulse of 70, respirations 18, temperature 97.4. LUNGS: Clear. HEART: Regular. ABDOMEN: Obese. EXTREMITIES: Without any edema. LABORATORY DATA: Sputum culture pending. Blood culture shows no bacterial growth. MRSA of the nares was negative. WBC count is normal at 8.6. ASSESSMENT AND PLAN: 1. Bilateral pneumonia, status post bronchoscopy. Bronch cultures are pending. Repeat chest x-ray will be ordered to make sure that is clearing. 2. Adult failure to thrive, the shelter patient. The patient to be discharged when the pneumonia gets better, when Dr. Robin spicer. SERENA SQUIRES MD CM:PNTRANS [phone] SERENA SQUIRES MD 06/29/17 0955 interface
--- NOTE | ~2017-06-25 | PR ---
[place], [place] PROGRESS NOTE NAME: MINAL MICHELLE SR UNIT #: [id number] ROOM: 420 DOCTOR: SUSIE GUTHRIE MD BIRTHDATE: [birth year] DOS: 06/27/2017 SUBJECTIVE: The patient is awake, alert, definitely confused. OBJECTIVE: VITAL SIGNS: Blood pressure 144/80, heart rate 70 beats per minute, breathing 18 times per minute, temperature 98 degrees Fahrenheit. LUNGS: Except for decreased breath sounds at the bases bilaterally and fine crackles. IMPRESSION: 1. The patient with bilateral lower lung pneumonia going for bronchoscopy by Dr. Kelly tomorrow for further management. 2. Old age, mental confusion and possible early dementia. We are taking bedsore precautions. 3. Bilateral pleural effusions, status post recent thoracentesis by Dr. Kelly. 4. Adult failure to thrive. The patient resides at senior care. 5. Chronic constipation, treated and controlled. 6. Hypothyroidism. The patient on supplements. SUSIE GUTHRIE MD CM:PNTRANS [phone] SUSIE GUTHRIE MD 06/28/1720 interface
--- NOTE | ~2017-06-25 | PR ---
[place], [place] PROGRESS NOTE NAME: MINAL MICHELLE SR UNIT #: [id number] ROOM: 420 DOCTOR: BERNARDINO GHOSH MD BIRTHDATE: [birth year] DOS: 06/27/2017 SUBJECTIVE: The patient was seen and examined. He has been still noted with coughing, which was noted only partially improved. The patient denies symptoms of chest pain. Denies symptoms of hemoptysis. He denies any symptoms of fever or chills. OBJECTIVE: VITAL SIGNS: Recorded temperature normal, respiratory rate 18, heart rate 69, blood pressure 150/80-135/78. Pulse oxygen saturation on 2 liters nasal cannula 96% saturation recorded. HEENT: Shows no acute change. NECK: Supple. CARDIOVASCULAR: S1, S2 audible. LUNGS: Decreased breath sounds still noted in the lower portion of the lungs bilaterally. ABDOMEN: Soft and nontender. LABORATORY DATA: INR 1.5 and PTT was normal. Two-view chest x-ray that was done shows partial improvement in aeration of the right lower lung with pleural fluid still remaining persistent in basilar area of infiltration or atelectasis. IMPRESSION: 1. Possibility of mucus impaction with current area of atelectasis, possibility of acute pneumonia has been considered, which will be treated with antibiotics. 2. History of congestive heart failure with systolic dysfunction and mitral valve regurgitation, which has been already addressed and treated with diuretics. 3. Chronic kidney disease. PLAN OF TREATMENT: No changes in the plan of therapy at this time. Continue current treatment with antibiotics and bronchodilators. In addition, the patient was also suggested consideration for bronchoscopy for further assessment of current pulmonary abnormality for assessment of pneumonia, atelectasis, and mucous infection. The patient agreed for the procedure. It was scheduled to be done in the morning, n.p.o. past midnight status will be achieved for the procedure. Other supportive plan of therapy to be continued. Continue to monitor kidney function with medical management. Usual care. Supportive plan of therapy and care. [place], [place] PROGRESS NOTE NAME: MINAL MICHELLE SR UNIT #: [id number] ROOM: 420 DOCTOR: BERNARDINO GHOSH MD BIRTHDATE: [birth year] BERNARDINO WADE MD CM:PNTRANS [id number] BERNARDINO GRIFFITH MD 06/27/17 1324 interface
--- NOTE | ~2017-06-25 | CON ---
[place], [place] REPORT OF CONSULTATION NAME: MINAL MICHELLE SR [facility] #: [id number] UNIT #: [id number] ROOM: 420 DOCTOR: BERNARDINO GHOSH MD BIRTHDATE: [birth year] DOS: 06/26/2017 REQUESTING PHYSICIAN: Dr. Gómez. REASON FOR CONSULTATION: Assess the patient for possibility of acute pneumonia and shortness of breath. HISTORY OF PRESENT ILLNESS: This 87-year-old white male who has been recently admitted to the hospital was treated for the acute respiratory failure with acute bronchitis as well as bilateral pleural fluid noted in the area of passive atelectasis of the lower lungs. Thoracentesis was done for the patient with large volume of pleural fluid removed on 04/16/2017. The patient is a resident of assisted living facility. As per son of this patient, the patient reported symptoms of having progressive increased coughing with some sputum expectoration described perennial in nature. The patient was also noticed with increased shortness of breath with the tightness in the chest. He was sent to the Emergency Room where he has been assessed and currently hospitalized for possibility of acute pneumonia management. The patient has been noted with reduction of respiratory symptoms at the present time, but still noted with significant cough, which has been noted to be productive and nonproductive intermittently. REVIEW OF SYSTEMS: CONSTITUTIONAL SYMPTOMS: Fatigue and tiredness noted without symptoms of fever or chills. EYES: Denies burning, redness, or tenderness. EAR, NOSE, THROAT SYMPTOMS: Mild senile hearing loss. ENT: Denies any ear discharge and pain, postnasal drainage or epistaxis. CARDIOVASCULAR SYMPTOMS: Denies edema or pain of the lower extremities or palpitations. GASTROINTESTINAL SYMPTOMS: Denies dysphagia, nausea, vomiting, diarrhea, abdominal pain, hematemesis, melena, or abnormal weight loss. GENITOURINARY SYMPTOMS: Denies dysuria, suprapubic pain, or hematuria. SKIN: No lesions or rashes. MUSCULOSKELETAL SYMPTOMS: Denies acute joint pain, redness, or tenderness. CENTRAL NERVOUS SYSTEM: Denies dizziness, headache, diplopia, tingling sensation of the extremities, or seizures. The remaining systems were reviewed and they were noted all negative. PAST MEDICAL HISTORY: 1. Congestive heart failure with systolic dysfunction and moderate mitral valve regurgitation as well. 2. History of essential hypertension. 3. Degenerative arthritis. 4. BPH. 5. History of colon cancer. The patient in the past had partial colectomy. 6. History of a stroke. PAST SURGICAL HISTORY: Noted, [place], [place] REPORT OF CONSULTATION NAME: [facility] [id number] UNIT #: [id number] ROOM: [facility] [place] DOCTOR: BERNARDINO GHOSH MD BIRTHDATE: [birth year] 1. Colon cancer removal. The patient with partial colectomy. 2. Cholecystectomy. 3. Laser surgery of the prostate. 4. Bilateral thoracentesis, transudative effusion for this patient done on 06/16/2017. SOCIAL HISTORY: The patient is a retired pharmacist. Denies history of alcohol use, illicit drug use or any tobacco use. FAMILY HISTORY: The patient's father from complication related to brain aneurysm, history about the mother was unknown. MEDICATIONS: The medications which has been administered at this time were noted as use of Lasix, Synthroid, Coreg, Zyloprim, and DuoNeb. DRUG ALLERGIES: Reported as no known drug allergies. PHYSICAL EXAMINATION: GENERAL: An 87-year-old elderly male, currently comfortably resting on the bed without any distress. Height was noted 5 feet 8 inches. Weight of 70 kg, BMI 23.3. VITAL SIGNS: Vital signs which has been recorded showed the temperature noted as normal, respiratory rate 16-20, heart rate of 70-69, blood pressure 147/66 -143/71. Pulse oxygen saturation noted on 2 L nasal cannula as 94% on room air, on admission 96% on room air. HEENT: Head was atraumatic. Eyes nonicterus. NECK: Supple. CARDIOVASCULAR: S1, S2 audible. LUNGS: Noted with decreased breath sounds in the lower lungs bilaterally. There was no wheezing. Scattered crackles of the lungs was noted. ABDOMEN: Flat, soft, nontender. Bowel sounds present. EXTREMITIES: Show no edema, clubbing or cyanosis. CENTRAL NERVOUS SYSTEM: Cranial nerves 2-12 intact. No focal deficits. MUSCULOSKELETAL: No deformities. SKIN: No lesions or rashes. LABORATORY DATA: CBC of the patient that was done on 06/25/2017 at admission, WBC count normal, hemoglobin 12.2, hematocrit 36.4, platelet count were normal. Lactic acid 1.3 yesterday noted on admission. CMP done for this patient yesterday BUN 24, creatinine 1.68, glucose 100, sodium 129, and carbon dioxide of 20. CBC of the patient done this morning for the patient was noted with similar results as of yesterday. Chest x-ray which was done, 1 view for the patient shows evidence of suspected consolidation or atelectasis noted in the right lower lobe with small bilateral pleural fluids. IMPRESSION: The patient has been currently admitted to the hospital with symptoms of, 1. Acute shortness of breath, most likely multifactorial, possibly atelectasis and/or pneumonia would be suspected because of severe coughing and sputum expectoration in the right lower lobe, non aspiration with community acquired [place], [place] REPORT OF CONSULTATION NAME: MINAL MICHELLE SR [facility] #: [id number] UNIT #: [id number] ROOM: [facility] [place] DOCTOR: BERNARDINO GHOSH MD BIRTHDATE: [birth year] infection, gram-positive infection. 2. Acute congestive heart failure. The patient was still suspected for mitral regurgitation and cardiomyopathy. 3. Bilateral pleural fluid was noted partially recurrent for this patient since previous hospitalization. 4. The patient with overall muscle deconditioning as well. 5. Acute on chronic kidney injury with elevation of creatinine. 6. The patient was suspected of congestive heart failure and prerenal azotemia. PLAN OF TREATMENT: Order the blood culture and sputum culture. Continue bronchodilator to help mobilize secretions. Start the patient on intravenous Levaquin. Monitor respiratory status closely, repeat chest x-ray, PA and lateral view in the morning. Assess the pleural fluid if necessary with ultrasound. The patient was also noted to have chronic kidney disease with possibility of acute kidney injury related to the current congestive heart failure would be likely. Thanks for allowing me to participate in the care of this patient. BERNARDINO WADE MD CM:CONSTR:REPORT OF CONSULTATION 1242 06/27/17 0022 interface
--- NOTE | ~2017-06-25 | DS ---
[place], [place] DISCHARGE SUMMARY NAME: MINAL MICHELLE SR UNIT #: [id number] ROOM: 420 DOCTOR: SUSIE GUTHRIE MD BIRTHDATE: [birth year] DOS: 07/02/2017 DIAGNOSES: 1. Bilateral aspiration pneumonia with abnormal barium swallowing study. The patient is to follow up with speech therapy at [facility]. 2. Acute pneumonia, gram positive organisms, treated with antibiotics. 3. Systolic type acute over chronic congestive heart failure. 4. Hypothyroidism. 5. Adult failure to thrive and generalized weakness. 6. Pacemaker placement. 7. History of chronic atrial fibrillation. HOSPITAL COURSE: The patient presented again with increased shortness of breath and was found to have bilateral pneumonic infiltrates in the lower lungs. The patient was seen and treated by water pipe installer, Dr. Kelly and also taken for bronchoscopy. The sputum cultures turned out to be negative, but his clinical condition did improve with IV antibiotics. The patient was finally taken for barium swallowing study, which showed some aspiration. The patient needs to be followed by speech therapy. Bilateral aspiration pneumonia. The patient needs to be followed by speech therapy, modify his diet and swallowing. Overall generalized weakness, adult failure to thrive with old age and poor long-term prognosis. For hypothyroidism, the patient was continued on thyroid supplements. Adult failure to thrive. We took bedsore precautions, fall precautions. The patient also worked with physical therapy. 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 DISCHARGE MANAGEMENT: The patient was on Lasix 20 mg a day, also given Levaquin 500 mg a day for 1 week, psyllium 1 packet daily, levothyroxine 75 mcg daily, Coreg 3.125 mg b.i.d., MiraLax 17 grams b.i.d., Tylenol p.r.n., DuoNeb q.i.d. p.r.n. Recommend follow up with speech therapy and Dr. Adilene Barnett to follow at [facility]. [place], [place] DISCHARGE SUMMARY NAME: MINAL MICHELLE SR UNIT #: [id number] ROOM: 420 DOCTOR: SUSIE GUTHRIE MD BIRTHDATE: [birth year] SUSIE GUTHRIE MD CM:ELMIRA [id number] SUSIE GUTHRIE MD 07/02/172233 interface
--- NOTE | ~2017-06-25 | PR ---
[place], [place] PROGRESS NOTE NAME: MINAL MICHELLE SR UNIT #: [id number] ROOM: 420 DOCTOR: BERNARDINO GHOSH MD BIRTHDATE: [birth year] DOS: 06/30/2017 PULMONARY FOLLOWUP SUBJECTIVE: He continued to show reduction and improvement in the symptoms of cough. The shortness of breath has been noted decreased. Denies symptoms of chest pain or abdominal pain. OBJECTIVE: VITAL SIGNS: Recorded showed normal temperature, respiratory rate 20, heart rate 69, blood pressure 116/64. The pulse oxygen saturation on 2 liters nasal cannula 98% saturation. HEENT: No acute change. NECK: Supple. CARDIOVASCULAR: S1, S2 audible. LUNGS: Noted with mild decreased breath sounds at lung bases. There were crackles. ABDOMEN: Soft, nontender. LABORATORY DATA: BMP today, BUN 19, creatinine 1.48, sodium 133. CBC this morning, normal WBC count, platelet count was normal, hemoglobin 12.2, hematocrit 36.4. Culture of the bronchial washing of the patient was noted normal sonya. Spontaneous sputum culture was also noted normal sonya. Chest x-ray of the patient that was done yesterday and this morning shows continued improvement in aeration of the lung with resolving pleural fluid and infiltration. IMPRESSION: 1. Acute pneumonia, gram-positive organism, currently treated and responding with the treatment very well. 2. Congestive heart failure with bilateral pleural fluid. The patient has mitral valve stenosis as well and cardiomyopathy with systolic dysfunction. PLAN OF MANAGEMENT: Continuation of current plan of therapy. At this time, the patient is doing well. Long-term planning for the patient needs to be addressed with the patient and the family members about possible consideration of short-term retirement placement with rehabilitation and possible discharge afterwards. Usual care. [place], [place] PROGRESS NOTE NAME: MINAL MICHELLE SR UNIT #: [id number] ROOM: 420 DOCTOR: BERNARDINO GHOSH MD BIRTHDATE: [birth year] BERNARDINO WADE MD CM:PNTRANS 1331 [id number] BERNARDINO GRIFFITH MD 07/01/17 0028 interface
--- NOTE | ~2017-06-25 | PR ---
[place], [place] PROGRESS NOTE NAME: MINAL MICHELLE SR UNIT #: [id number] ROOM: 420 DOCTOR: SERENA SQUIRES MD BIRTHDATE: [birth year] DOS: 07/01/2017 SUBJECTIVE: The patient does not have any complaints at all. Denies any chest pains, palpitations, shortness of breath. He does have a cough, but is unable to bring up whole lot of mucus. OBJECTIVE: VITAL SIGNS: Graphic trend shows the patient is afebrile. Blood pressure is 138/78, pulse of 70, respirations 18, temperature 97.9. LUNGS: Diminished breath sounds. HEART: Regular. ABDOMEN: Obese. EXTREMITIES: Without any edema. LABORATORY DATA: AFB cultures are negative. Blood cultures finally shows no bacterial growth. Chest x-ray show bilateral airspace disease ____ aspiration ____. ASSESSMENT AND PLAN: 1. Bilateral pneumonia with pleural effusion, status post bronchoscopy with negative bronchoscopy cultures. Discussed with Dr. Kelly. The plan is to discharge him back to the detention on p.o. antibiotics. 2. Chest x-ray raising a possibility of aspiration. We will order a barium swallow with speech, 3 adult failure to thrive. The patient to go back to the detention when stable. SERENA SQUIRES MD CM:PNTRANS 1702 07 SERENA SQUIRES MD 07/01/178 interface
--- NOTE | ~2017-06-25 | PR ---
[place], [place] PROGRESS NOTE NAME: MINAL MICHELLE SR UNIT #: [id number] ROOM: 420 DOCTOR: SERENA SQUIRES MD BIRTHDATE: [birth year] DOS: SUBJECTIVE: The patient looks much better this morning. He is more awake and alert. He has a very weak cough. OBJECTIVE: VITAL SIGNS: Blood pressure is 124/72, pulse of 69, respirations 20, temperature 97.4. LUNGS: Clear. HEART: Regular. ABDOMEN: Obese, soft, nontender. EXTREMITIES: Without any edema. ASSESSMENT AND PLAN: 1. Bilateral pneumonia. Chest x-ray continues to show improvement in the pneumonia. 2. Bronchoscopy for mucus plugging. So far, the sputum cultures are showing normal sonya. 3. Adult failure to thrive. I plan to discharge him back to the alf tomorrow if okayed by Dr. Kelly. SERENA SQUIRES MD CM:PNTRANS [id number] SERENA SQUIRES MD 06/30/17 1114 interface
--- NOTE | ~2017-06-25 | PR ---
[place], [place] PROGRESS NOTE NAME: MINAL MICHELLE SR UNIT #: [id number] ROOM: 420 DOCTOR: SUSIE GUTHRIE MD BIRTHDATE: [birth year] DOS: 06/28/2017 SUBJECTIVE: The patient is status post bronchoscopy by Dr. Kelly. OBJECTIVE: VITAL SIGNS: Blood pressure 108/50, heart rate 70 beats per minute, breathing normally, afebrile. Standard exam except for the patient pleasantly confused. LABORATORY DATA: Blood cultures have been negative. IMPRESSION AND PLAN: 1. The patient with bilateral lower lobe pneumonic consolidation, status post bronchoscopy with secretion removal and mucus plugging was seen by Dr. Kelly. Plan is to discharge the patient back to the [facility] once cleared by Dr. Kelly with continued antibiotics. 2. Signs of late onset of Alzheimer's type dementia and some mental confusion. 3. Bilateral pleural effusion, status post thoracentesis by Dr. Kelly a few weeks ago. 4. Adult failure to thrive. 5. Chronic constipation, treated and controlled. 6. Hypothyroidism, replaced with supplements. SUSIE GUTHRIE MD CM:PNTRANS 1153 5 SUSIE GUTHRIE MD 06/29/176 interface
--- NOTE | ~2017-06-25 | PROC NOTE ---
[place], [place] PROCEDURE NOTE NAME: MINAL MICHELLE SR [facility] #: [id number] UNIT #: [id number] ROOM: 420 DOCTOR: MICHELLE TAYLOR BIRTHDATE: [birth year] DOS: 07/02/2017 MODIFIED BARIUM SWALLOW LOCATION: [facility], room 420, bed 1. ORDERING DOCTOR: Dr. Adilene Barnett. RADIOLOGIST: Dr. Leija. BACKGROUND INFORMATION: The patient, an 87-year-old male was seen for modified barium swallow. This test was ordered to rule out aspiration. The patient currently presents with bilateral pneumonia and aspiration is suspected. Further medical history includes failure to thrive, CKD, HTN, Parkinson's disease, UTI, hiatal hernia, AFib, CHF, colon cancer. The patient currently receives a soft diet and thin liquids. A prior modified barium swallow had been conducted on 11/23/2015. At that time, he exhibited a delayed swallow and silent penetration with thin liquids by straw. He was recommended a regular diet with chopped meats and thin liquids by cup only. For today's assessment, the patient was alert and able to follow commands; however, exhibited significant generalized weakness. He was receiving oxygen via nasal cannula. His responses were minimal and he kept his eyes closed and rested until test began. Oral peripheral examination revealed presence of natural teeth. However, many were missing. The patient also exhibited a top bridge. Labial skills were mildly impaired in strength. Lingual skills were mildly impaired in strength and range of motion. The patient was able to volitionally cough and swallow. METHODS AND MATERIALS USED FOR THE EXAM: The patient was positioned in the lateral plane and examination was viewed under fluoroscopy. The patient was presented with a variety of consistencies to assess swallowing skills including applesauce mixed with barium presented in half teaspoon amounts, barium-coated banana and cookie presented in bite size pieces and thin and nectar thick barium taken by cup. The patient took the cup independently. He was instructed to swallow in a normal sip size amount. The sips were noted to be in single sip quantities, occasional large sips were taken. ORAL PHASE: The patient achieved adequate labial seal around cup and spoon with no anterior loss. Bolus formation was mild to moderately impaired with soft solid consistencies. Oral transit was slow with these consistencies as well as his mastication was delayed. He achieved adequate tongue to palate contact. Tongue retraction was adequate. Velar functioning was within normal limits with no nasal regurgitation. PHARYNGEAL PHASE: The pharyngeal swallow was mildly delayed only with the barium-coated cookie. A timely swallow was noted with other consistencies. This delay on one consistency may possibly be due to his week condition. Once his swallow triggered, laryngeal elevation was noted to be mildly reduced. Epiglottic function was reduced with liquids. Penetration during the swallow was displayed with thin liquid. Coughing was elicited. The patient was then [place], [place] PROCEDURE NOTE NAME: MINAL MICHELLE SR UNIT #: [id number] ROOM: [facility] DOCTOR: MICHELLE TAYLOR BIRTHDATE: [birth year] given nectar thick liquid. He took a large sip which resulted in aspiration during the swallow, coughing again was elicited. The patient was given another trial with nectar thick liquid. He took this in a single sip size amount using a chin tuck maneuver. A small amount of transient upper airway penetration occurred when he consumed a nectar thick liquid in a chin tuck position. No pooling occurred in the vallecula or pyriform with any consistency. ESOPHAGEAL PHASE: This phase of the swallow was not formally assessed during this examination. IMPRESSIONS AND RECOMMENDATIONS: Based upon assessment results, this 87-year-old patient presents with a moderate oropharyngeal dysphagia. Bolus formation and transit were slow with soft solid. Swallow initiation was delayed with barium-coated cookie only. Laryngeal elevation and epiglottic function were impaired resulting in penetration during the swallow with thin liquid and aspiration during the swallow with nectar thick when a large sip was taken. When patient consumed nectar thick liquid using chin tuck, a small amount of transient penetration occurred. Recommend the patient receive a soft diet with honey-thick liquids with a chin tuck when swallowing thick liquids. Recommend safety strategies to implement at mealtime such as upright positioning, small bites and sips and alternating liquids and solids. Followup therapy is recommended focusing on education, use of strategies and strengthening exercises to improve safety with intake. Results and recommendations were shared with the patient's nurse who verbalized understanding. Thank you very much for this referral. Should you have any questions regarding this patient, please contact the speech pathologist at [phone]. MICHELLE TAYLOR CM:PROCNOTE:PROCEDURE NOTE [phone] MICHELLE TAYLOR
[2017-06-25 13:05] VITALS: BP 142/73
[~2017-06-25 13:05] MED LIST changes: +AMOXICILLIN500 M2 PO; +CARVEDILOL3.125 MG PO; +DUONEB 3 MG/3 ML3 M1 NEB; +IRON325 M1 PO; +K-TAB10 MEQ PO; +LASIX20 MG PO; +ROBITUSSIN5 ML PO; +SYNTHROID,LEVO75 MCG PO; +TYLENOL325 M1 PO; +VITAMIN D34000 UNIT PO; +VITAMIN D400 I1 PO
[2017-06-25 13:51] LABS: BILIRUBIN NEGATIVE (NEGATIVE); BLOOD TRACE-LYSED (NEGATIVE); CLARITY CLEAR (CLEAR); COLOR YELLOW (YELLOW); GLUCOSE NEGATIVE (NEGATIVE); KETONE NEGATIVE (NEGATIVE); LEUKO ESTERASE NEGATIVE (NEGATIVE); NITRITE NEGATIVE (NEGATIVE); UROBILINOGEN 0.2 E.U./dl (0.2-1.0)
[2017-06-25 14:11] LABS: BASO # 0.1 10*3/uL (0.0-0.1); BASO % 0.8 % (0.0-1.0); EOS # 0.3 10*3/uL (0.0-0.4); EOS % 3.2 % (1.0-4.0); HEMATOCRIT 36.4 % (42.0-52.0); HEMOGLOBIN 12.2 g/dl (14.0-18.0); LYMPH # 1.6 10*3/uL (1.3-4.4); LYMPH % 20.6 % (27.0-41.0); MEAN CORPUSCULAR HGB 30.5 pg (27.0-31.0); MEAN CORPUSCULAR HGB CONC 33.5 g/dl (33.0-37.0); MEAN PLATELET VOLUME 10.2 fl (9.6-12.3); MONO # 0.7 10*3/uL (0.1-1.0); MONO % 8.5 % (3.0-9.0); NEUT # 5.1 10*3/uL (2.3-7.9); NEUT % 66.5 % (47.0-73.0); PLATELET COUNT AUTOMATED 213 10*3/uL (130-400); RED CELL DISTRI WIDTH 14.4 % (0-14.5); WHITE BLOOD COUNT 7.7 10*3/uL (4.8-10.8)
[2017-06-25 14:26] LABS: ALBUMIN 3.3 gm/dl (3.1-4.5); BUN 24 mg/dl (7-24); CHLORIDE 97 mmol/L (98-107); POTASSIUM 3.8 mmol/L (3.5-5.1); SGPT/ALT 33 U/L (12-78); SODIUM 129 mmol/L (136-145)
[2017-06-25 14:32] LABS: ALKALINE PHOSPHATASE 130 U/L (45-117); CREATININE 1.68 mg/dL (0.70-1.30); SGOT/AST 20 IU/L (3-35); TOTAL PROTEIN 6.8 gm/dL (6.4-8.2)
[2017-06-25 14:34] LABS: TROPONIN I < 0.015 ng/ml (<0.045)
[2017-06-25 14:59] VITALS: BP 144/85
--- NOTE | 2017-06-25 15:25 | NUR ---
MED REC UPDATED PER MEDICATION LIST FROM THE RESIDENTIAL WHERE THE PATIENT IS CURRENTLY STAYING. PATIENT UNABLE TO ANSWER QUESTIONS
[2017-06-25] MEDS ORDERED: LEVOTHYROXINE75 MCG PO (15:27)
[2017-06-25] MEDS ORDERED: METAMUCIL FIBE3.4 GM PO (15:29)
[2017-06-25 15:30] VITALS: BP 144/78
--- NOTE | 2017-06-25 15:30 | NUR ---
A 87, admitted to , under the services of Dr. JERRI COX,SUSIE Mitchell with a diagnosis of bilateral pneumonia. Chief complaint is increasing shortness of breath . Patient arrived via stretcher from ER. Monitor applied. Initial assessment completed. Vital signs taken and recorded. DR. JERRI COX,SUSIE Mitchell notified of admission to the unit. Orders received. See assessment for past medical history, medications and allergies. Patient and/or family oriented to unit. [facility] visitation policy reviewed. Clothing/patient valuable form completed. MIKEL SAAVEDRA
[2017-06-25] MEDS ORDERED: AMOXICILLIN500 M3 PO (15:31)
[2017-06-25] MEDS ORDERED: COREG3.125 MG PO (15:33)
[2017-06-25] MEDS ORDERED: DUONEB 3 MG/3 ML3 M1 INH (15:34)
[2017-06-25] MEDS ORDERED: IRON325 M1 PO (15:35)
[2017-06-25] MEDS ORDERED: LASIX20 MG PO (15:37)
[2017-06-25] MEDS ORDERED: ACETAMINOPHEN325 M2 PO (15:39)
[2017-06-25] MEDS ORDERED: VITAMIN D34000 UNIT PO (15:40)
[2017-06-25 16:00] VITALS: BP 147/66
--- NOTE | 2017-06-25 16:25 | NUR ---
HERE AND NOTIFIED REGARDING ADMISSION ORDERS.
--- NOTE | 2017-06-25 17:17 | NUR ---
Attempts to reach stephani Orellana re: code status clarification met w/ ans machine . # provided by pt. dtr stated # is OOS.
--- NOTE | 2017-06-25 17:23 | NUR ---
Code status clarified w/ son Nikko. pt. to remain [facility]. POA retrieved for previous chart.
--- NOTE | 2017-06-25 17:27 | NUR ---
NOTIFIED OF CONSULT.
[2017-06-25 20:00] VITALS: BP 151/86
--- NOTE | 2017-06-25 20:54 | NUR ---
PT. RESTING IN BED, , SON AND DAUGHTER AT BEDSIDE. AND PATIENT VERY DEMANDING. COMPLAINING AIR BED IS COLD AND WANTS BED CHANGED. EXPLAINED AIR BED PREVENTS BED SORES AND PATIENT HAD JUST BEEN PLACED ON AIR BED WITH IN ROOM PRIOR TO SHIFT (APPROX 45 MINUTES PRIOR). LUNGS DIMINISHED BUT CLEAR BILAT, PULSE OX 98% ON RA. ABDOMEN SOFT, NONDISTENDED AND NORMO. HEP LOCK IN RH ASYMPT. DR. GUTHRIE NOTIFIED AT 1950 THAT PT WANTED TO SWITCH BACK TO REGULAR BED, ORDER TO DISCONTINUE PER FAMILY BY DR. GUTHRIE. PT. ATTEMPTED TO MOVE BOWELS ON BED PAIN, UNABLE TO DO SO. THERESE COOPER RN
--- NOTE | 2017-06-25 22:48 | NUR ---
PT GIVEN AMBIEN PER REQUEST TO HELP SLEEP.
--- NOTE | 2017-06-25 23:20 | NUR ---
PT SLEEPING. CRISTINA EFFECTIVE.
[2017-06-26] VITALS: BP 129/59
[2017-06-26 06:04] LABS: BASO # 0.1 10*3/uL (0.0-0.1); BASO % 0.6 % (0.0-1.0); EOS # 0.2 10*3/uL (0.0-0.4); EOS % 2.2 % (1.0-4.0); HEMATOCRIT 37.9 % (42.0-52.0); HEMOGLOBIN 12.9 g/dl (14.0-18.0); LYMPH # 1.2 10*3/uL (1.3-4.4); LYMPH % 12.7 % (27.0-41.0); MEAN CELL VOLUME 90.5 fl (80.0-94.0); MEAN CORPUSCULAR HGB 30.8 pg (27.0-31.0); MEAN PLATELET VOLUME 10.5 fl (9.6-12.3); MONO % 10.3 % (3.0-9.0); NEUT % 73.9 % (47.0-73.0); PLATELET COUNT AUTOMATED 219 10*3/uL (130-400); RED BLOOD COUNT 4.19 10*6/uL (4.50-5.90); RED CELL DISTRI WIDTH 14.4 % (0-14.5); WHITE BLOOD COUNT 9.5 10*3/uL (4.8-10.8)
[2017-06-26 08:00] VITALS: BP 143/71
--- NOTE | 2017-06-26 08:59 | NUR ---
TALKED WITH DR. GUTHRIE REGARDING NO ANTIBIOTICS BEING ORDERED. ORDERS RECEIVED TO CALL DR. WADE REGARDING ABX ORDERS.
--- NOTE | 2017-06-26 09:00 | NUR ---
MOTOR POWER CONNECTOR VS. PT IS LTC AT [facility] AND PLANS TO RETURN WHEN STABLE FOR DC. SON AT BEDSIDE AND AGREES.
[2017-06-26 12:00] VITALS: BP 147/81
--- NOTE | 2017-06-26 13:54 | NUR ---
PHYSICAL THERAPY PAtient eating lunch at this time. Aaliyah Rocha,PT
--- NOTE | 2017-06-26 14:14 | NUR ---
PHYSICAL THERAPY PAtient still eating. Aaliyah Rocha,PT
--- NOTE | 2017-06-26 14:56 | NUR ---
PHYSICAL THERAPY PAtient evaluatd on 4, full evaluation to follow. continue with PT as per plan of care with fall, mod (A) and knee flexion contractures precautions. Return to LTC as prior with PT prn to return to PLOF. PAtient is moderate complexity via chart review, test and evaluation: [id number]. Thank you for this referral. Aaliyah Rocha ,PT
[2017-06-26 16:51] VITALS: BP 105/87
[2017-06-26 21:15] VITALS: BP 135/78
[2017-06-27] VITALS: BP 131/77
--- NOTE | 2017-06-27 01:21 | NUR ---
SLEEPING. RESP. EASY AND REG. NO COUGH NOTED AT THIS TIME.
--- NOTE | 2017-06-27 03:34 | NUR ---
AWAKE COUGHING AND FEELING LIKE HE "CAN'T GET BACK TO SLEEP, FEELING A LITTLE ANXIOUS" PER PT. ROBITUSSIN GIVEN PER ORDER FOR COUGHING.
--- NOTE | 2017-06-27 05:20 | NUR ---
PER PT. GRACE HAS HELPED WITH THE COUGH AND HELPING HIM FEEL MORE CALM.
[2017-06-27 08:00] VITALS: BP 150/80
--- NOTE | 2017-06-27 08:39 | NUR ---
PHYSICAL THERAPY Pt off the floor this AM therapy visit. Went down to X-Ray. SHADI CHIANG LICENSED OPTICAL DISPENSER.
[2017-06-27 09:59] LABS: ACT PARTIAL THROMBO TIME 29.7 SECONDS (20.8-31.5); INTERNATIONAL NORM RATIO 1.5 (2.0-3.5)
--- NOTE | 2017-06-27 11:29 | NUR ---
PHYSICAL THERAPY Back to treat [place] for his therapy session. Pt back from X-Ray, up in his bedside chair bady alarm on. Pt needing much verbal cueing for his transfer up standing and standing balance to lean forward to keep from falling backwards. Pt is a little confused/slow. Sit/stand X 2, up on wheeled walker, Gait total 45' X 1, with slow gait with small steps and leaning forward onto his walker for gait balance and did better then i thought he was going to do with MOD A X 1,. Pt needing much cueing for his gait, walker safety. Pt back up in his bedside chair body alarm on and was ready to sit, treratment time 18 min. SHADI CHIANG CREATIVE ART DIRECTOR.
--- NOTE | 2017-06-27 13:12 | NUR ---
Patient can return to [facility] when discharged.
[2017-06-27 16:00] VITALS: BP 145/79
--- NOTE | 2017-06-27 19:30 | NUR ---
PT. FEELING ANXIOUS ABOUT HAVING PROCEDURE DONE, KEEPS REPEATING WHAT HE NEEDS TO DO. REASSURANCE GIVEN. FAMILY AT BEDSIDE.
--- NOTE | 2017-06-27 20:56 | NUR ---
SPUTUM OBTAINED AND SENT TO LAB FOR TESTING.
[2017-06-28] VITALS (9 sets, daily range): BP systolic 90–133; BP diastolic 46–81
--- NOTE | 2017-06-28 04:00 | NUR ---
SLEEPING. RESP EASY AND REG.
--- NOTE | 2017-06-28 07:22 | NUR ---
Shift chart check completed.
--- NOTE | 2017-06-28 08:00 | NUR ---
PLACED BACK IN BED WITH 2 MAX ASSIST TO TRANSPORT TO SURGERY. GLASSES & WATCH PLACED IN UPPER DRAWER OF DRESSER AT BEDSIDE. SPOKE TO SON ABOUT RISKS OF BRONCH. SURGICAL TRANSPORT HERE AND LISTENED TO DISCUSSION, SHE WILL RELAY TO DR WADE THAT HE HAS QUESTIONS. PER THE SON THOUGH AFTER TALKING WITH THE NURSE MOST WERE ANSWERED. ASSESSMENT COMPLETED PRIOR TO TRANSFER - THICK BROWN SPUTUM COUGHED UP PRIOR TO TRANSFER
--- NOTE | 2017-06-28 08:02 | NUR ---
MED REC WAS AGAIN REVIEWED AGAINST PENITENTIARY PAPERS
--- NOTE | 2017-06-28 10:10 | NUR ---
PHYSICAL THERAPY Esteban seen this AM 1:1 for his therapy session. Transfer supine/sit MOD A X 1, sitting balance CGA X 1, X 5 min sitting. Pt is a little confused though and needing repeat verbal cueing. Sit/stand and up on wheeled walker standing balance MOD A X 1, with much cueing to lean forward onto the walker for balance. Gait total 55' X 1, slow gait, verbal cueing for gait, walker, turn safety. Esteban up on his bedside chair, call light, body alarm, phone. Pt is not safe up ambulating independent, treatment time 24 min. SHADI CHIANG INDIRECT SALES EXEC.
--- NOTE | 2017-06-28 11:15 | NUR ---
SLEEPING WITH CPAP IN PLACE. VSS. NO DISTRESS
--- NOTE | 2017-06-28 20:00 | NUR ---
PT. CALLING OUT SAYS HE FEELS APPREHENSIVE, AND ANSY(ANXIOUS). CALLED DR SQUIRES NOTIFIED HER OF PATIENTS FEELINGS AND ORDERS RECEIVED.
--- NOTE | 2017-06-28 20:18 | NUR ---
XANAX GIVEN PER ORDER FOR ANXIETY. VITAL SIGNS TAKEN AND NIGHT MEDICATIONS GIVEN. PT ADJUSTED IN BED AND WILL LET HIM REST. FAMILY AT BEDSIDE.
--- NOTE | 2017-06-28 21:33 | NUR ---
SLEEPING. XANAX EFFECTIVE
[2017-06-29] VITALS: BP 116/65
--- NOTE | 2017-06-29 01:06 | NUR ---
Placed call light on, stated, needed to use urinal, but awoke and felt he was having hallucinations and/or a delusional dream. Alert and oriented x 3. States thought he was at [place] and strange things were happening. Then questioned if possible he received medications that caused these things. Reassured we would frequently check on him. Resting quietly in room at this time. Resp easy and regular. Will continue to monitor.
[2017-06-29 06:33] LABS: BASO # 0.1 10*3/uL (0.0-0.1); BASO % 0.8 % (0.0-1.0); EOS # 0.5 10*3/uL (0.0-0.4); EOS % 5.6 % (1.0-4.0); HEMATOCRIT 36.3 % (42.0-52.0); HEMOGLOBIN 12.3 g/dl (14.0-18.0); LYMPH # 1.7 10*3/uL (1.3-4.4); LYMPH % 19.2 % (27.0-41.0); MEAN CELL VOLUME 90.8 fl (80.0-94.0); MEAN CORPUSCULAR HGB 30.8 pg (27.0-31.0); MEAN CORPUSCULAR HGB CONC 33.9 g/dl (33.0-37.0); MEAN PLATELET VOLUME 10.6 fl (9.6-12.3); MONO # 0.9 10*3/uL (0.1-1.0); MONO % 9.9 % (3.0-9.0); NEUT # 5.5 10*3/uL (2.3-7.9); PLATELET COUNT AUTOMATED 177 10*3/uL (130-400); RED CELL DISTRI WIDTH 14.5 % (0-14.5); WHITE BLOOD COUNT 8.6 10*3/uL (4.8-10.8)
[2017-06-29 06:57] LABS: ALBUMIN 2.9 gm/dl (3.1-4.5); CREATININE 1.59 mg/dL (0.70-1.30); POTASSIUM 3.7 mmol/L (3.5-5.1)
[2017-06-29 08:00] VITALS: BP 133/71
[2017-06-29 13:05] LABS: ACID FAST SMEAR Negative (.); ACID FAST SPEC PROCESSING Concentration (.)
[2017-06-29 16:00] VITALS: BP 126/63
[2017-06-30] VITALS: BP 124/72
[2017-06-30 06:17] LABS: BASO # 0.1 10*3/uL (0.0-0.1); BASO % 0.8 % (0.0-1.0); EOS # 0.5 10*3/uL (0.0-0.4); EOS % 6.3 % (1.0-4.0); HEMATOCRIT 36.4 % (42.0-52.0); HEMOGLOBIN 12.2 g/dl (14.0-18.0); LYMPH # 1.6 10*3/uL (1.3-4.4); LYMPH % 18.6 % (27.0-41.0); MEAN CORPUSCULAR HGB 30.5 pg (27.0-31.0); MEAN CORPUSCULAR HGB CONC 33.5 g/dl (33.0-37.0); MEAN PLATELET VOLUME 10.7 fl (9.6-12.3); MONO # 0.8 10*3/uL (0.1-1.0); MONO % 9.4 % (3.0-9.0); NEUT # 5.6 10*3/uL (2.3-7.9); NEUT % 64.6 % (47.0-73.0); PLATELET COUNT AUTOMATED 183 10*3/uL (130-400); RED CELL DISTRI WIDTH 14.6 % (0-14.5); WHITE BLOOD COUNT 8.6 10*3/uL (4.8-10.8)
[2017-06-30 06:31] LABS: POTASSIUM 4.4 mmol/L (3.5-5.1)
[2017-06-30 06:33] LABS: CREATININE 1.48 mg/dL (0.70-1.30); TOTAL PROTEIN 6.3 gm/dL (6.4-8.2)
[2017-06-30 08:00] VITALS: BP 116/64
[2017-06-30 16:00] VITALS: BP 115/62
--- NOTE | 2017-06-30 16:29 | NUR ---
Hep Lock discontinued to rt arm pt states that site is hurting. Slight redness noted at site. Pressure applied. Sterile dressing applied. IV started right forearm with #22 angiocath after 2 attempts. The IV site was prepped with Chloraprep. Heparin lock attached. Sterile dressing applied. Patient tolerated precedure well. Procedure performed according to [facility] policy & procedure. LAWSON ZAMORA
[2017-07-01] VITALS: BP 135/73
--- NOTE | 2017-07-01 00:24 | NUR ---
PATIENT AWAKE IN BED, A&OX3. PATIENT DENIES CHEST PAIN, SOB, OR GENERALIZED DISCOMFORT. PATIENT DOES C/O MOIST COUGH, PRODUCTIVE FOR WHITE SPUTUM PER PT. O2 VIA NC AT 2L. SEE ASSESSMENT DOCUMENTATION. WILL MONITOR. CALL LIGHT LEFT WITHIN REACH.
[2017-07-01 06:14] LABS: BASO # 0.1 10*3/uL (0.0-0.1); BASO % 0.9 % (0.0-1.0); EOS # 0.6 10*3/uL (0.0-0.4); EOS % 7.1 % (1.0-4.0); HEMATOCRIT 37.5 % (42.0-52.0); HEMOGLOBIN 12.4 g/dl (14.0-18.0); LYMPH # 1.7 10*3/uL (1.3-4.4); LYMPH % 18.3 % (27.0-41.0); MEAN CELL VOLUME 90.4 fl (80.0-94.0); MEAN CORPUSCULAR HGB 29.9 pg (27.0-31.0); MEAN CORPUSCULAR HGB CONC 33.1 g/dl (33.0-37.0); MEAN PLATELET VOLUME 10.9 fl (9.6-12.3); MONO # 0.9 10*3/uL (0.1-1.0); MONO % 9.8 % (3.0-9.0); NEUT # 5.8 10*3/uL (2.3-7.9); NEUT % 63.7 % (47.0-73.0); PLATELET COUNT AUTOMATED 170 10*3/uL (130-400); RED BLOOD COUNT 4.15 10*6/uL (4.50-5.90); RED CELL DISTRI WIDTH 14.6 % (0-14.5); WHITE BLOOD COUNT 9.1 10*3/uL (4.8-10.8)
[2017-07-01 06:32] LABS: ALBUMIN 2.9 gm/dl (3.1-4.5); CREATININE 1.51 mg/dL (0.70-1.30); POTASSIUM 4.3 mmol/L (3.5-5.1); TOTAL PROTEIN 5.9 gm/dL (6.4-8.2)
[2017-07-01 08:00] VITALS: BP 141/76
--- NOTE | 2017-07-01 08:00 | NUR ---
PATIENT IS RESTING IN BED WITH NO COMPLAINTS AT THIS TIME. PLEASANT AND COOPERATIVE. I WORKED WITH HIM A LITTLE BIT WITH INCENTIVE SPIROMETER. SEE ASSESSMENT.
--- NOTE | 2017-07-01 10:14 | NUR ---
PHYSICAL THERAPY Esteban seen this AM 1:1 for her therapy, Pt stilll a little confused and needing help with verbal cues. Transfer supine/sit and asking for help up with MOD A X 1, sitting balance once up supervision X 1, X 5 min. Sit/stand and standing balance with stanard walker once up MIN A X 1, with cueing for balance safety and not to fall backwards. Then gait total 42' X 2, one sitting rest with MOD AIRPLANE PILOT CROP DUSTING X 1, with cueing for gait balance hold your head up, stand tall. Pt taken off the floor down to X-Ray at this time in wheelchair treatment time 25 min. SHADI CHIANG SUPERVISORY IT SPECIALIST.
[2017-07-01 16:00] VITALS: BP 138/78
--- NOTE | 2017-07-01 18:00 | NUR ---
PATIENT HAS FAMILY AT [facility]. A&O, NO COMPLAINTS OR SXS OF DISTRESS AT THIS TIME. WILL SCOTTIOR
[2017-07-01 20:00] VITALS: BP 133/65
--- NOTE | 2017-07-01 20:10 | NUR ---
PATIENT AWAKE IN BED, A&OX3. PATIENT DENIES ANY PAIN/GENERALIZED DISCOMFORT AT THIS TIME. WILL CONTINUE TO MONITOR. CALL LIGHT LEFT IN REACH.
[2017-07-02] VITALS: BP 131/77
--- NOTE | 2017-07-02 05:53 | NUR ---
ORAL ROBITUSSIN GIVEN PER PRN ORDER FOR COUGH. WILL MONITOR EFFECTIVENESS. CALL LIGHT LEFT WITHIN REACH.
[2017-07-02 08:00] VITALS: BP 138/61
--- NOTE | 2017-07-02 08:00 | NUR ---
DR. GUTHRIE IN TO SEE PATIENT RE: PLAN OF CARE AND IS ENTERING ORDER TO DISCHARGE TO [facility] AFTER MODIFIED BARIUM SWALLOW COMPLETED.
[2017-07-02] MEDS ORDERED: LEVOFLOXACIN500 MG PO (08:36)
--- NOTE | 2017-07-02 09:34 | NUR ---
SPEECH PATHOLOGY MBS completed as per orders. Patient was alert but with significant generalized weakness. He was cooperative for assessment. During assessment he displayed a moderate oropharyngeal dysphagia. Bolus formation and transit were slow with soft solid. Swallow initiation was delayed with barium coated cookie only. Laryngeal elevation and epiglottic function were impaired resulting in penetration during the swallow with thin liquid and aspiration during the swallow with nectar thick liquid (large sip taken). When patient consumed nectar thick liquid using a chin tuck maneuver a small amount of transient penetration occurred. Recommend soft diet and honey thick liquid, with chin tuck when swallowing the thick liquid. Recommend upright positioning, small bites and sips and alternating liquid and solids. FOllow up therapy is recommended focusing on education, use of strategies and strengthening exercises to improve safety with intake. Results and pteros. were shared with patient's nurse who verbalized understanding. Dictated report to follow. Thank you for this referral. MICHELLE TAYLOR MSCCC-OUTSIDE MEDICAL SALES REPRESENTATIVE
--- NOTE | 2017-07-02 09:34 | NUR ---
PER SPEECH THERAPY, SOFT DIET WITH HONEY THICK LIQUIDS RECCOMMENDED WITH CHIN TUCK FOR SWALLOWING LIQUIDS.
--- NOTE | 2017-07-02 10:20 | NUR ---
PHYSICAL THERAPY Mr Gabriel seen this AM 1:1 for his therapy gait. Transfer supine/sit MOD A X 1, sitting balance supervision X 1, to independent sitting balance. Sit/stand and up on wheeled walker standing balance MOD A X 1. Followed by gait 55' X 2, one sitting rest with verbal cueing for gait, W/W safety and no LOB with this gait. Pt up in his bedside chair, call light and going to order breakfast, treatment time 25 min. SHADI CHIANG DELI WORKER.
--- NOTE | 2017-07-02 10:32 | NUR ---
Patient is being discharged back to the [facility]. Transportation scheduled for 2 pm with [facility]. NH, nursing and family notified. updates faxed
[2017-07-02 12:00] VITALS: BP 130/62
--- NOTE | 2017-07-02 14:06 | NUR ---
PHYSICAL THERAPY CO-SIGN I approve of the Phyical Therapy notes written above. BENTLEY FLETCHER PT
--- NOTE | 2017-07-02 14:13 | NUR ---
REPORT CALLED TO RECEIVING NURSE AT [facility], AMBULANCE SERVICE IS HERE TO TRANSPORT THE PATIENT.
--- NOTE | 2017-07-02 14:19 | NUR ---
PATIENT DISCHARGED TO [facility] BY AMBULANCE SERVICE.
== END 2017-07-02 14:19 | disposition home or self-care (01) | DRG 163 ==
LOC: ED 13:05 → EDHOLD 14:50 → 4E 14:50
PROVIDERS: Emergency Medicine; Internal Medicine Critical Care Medicine; ADMIT Internal Medicine
PROC: 0B938ZZ Drainage of Right Main Bronchus, Via Natural or Artificial Opening Endoscopic (ICD-10-PCS; 2017-06-28)
PROC: 0B948ZZ Drainage of Right Upper Lobe Bronchus, Via Natural or Artificial Opening Endoscopic (ICD-10-PCS; 2017-06-28)
PROC: 0B968ZZ Drainage of Right Lower Lobe Bronchus, Via Natural or Artificial Opening Endoscopic (ICD-10-PCS; 2017-06-28)
PROC: 0B978ZZ Drainage of Left Main Bronchus, Via Natural or Artificial Opening Endoscopic (ICD-10-PCS; 2017-06-28)
PROC: 0B9D8ZZ Drainage of Right Middle Lung Lobe, Via Natural or Artificial Opening Endoscopic (ICD-10-PCS; 2017-06-28)
PROC: 0B998ZZ Drainage of Lingula Bronchus, Via Natural or Artificial Opening Endoscopic (ICD-10-PCS; 2017-06-28)
PROC: 0B988ZZ Drainage of Left Upper Lobe Bronchus, Via Natural or Artificial Opening Endoscopic (ICD-10-PCS; 2017-06-28)
PROC: 0B958ZZ Drainage of Right Middle Lobe Bronchus, Via Natural or Artificial Opening Endoscopic (ICD-10-PCS; 2017-06-28)
PROC: BD11YZZ Fluoroscopy of Esophagus using Other Contrast (ICD-10-PCS; principal; 2017-07-02)
DX: J69.0 Pneumonitis due to inhalation of food and vomit (principal); I50.23 Acute on chronic systolic (congestive) heart failure; N17.9 Acute kidney failure, unspecified; I13.0 Hypertensive heart and chronic kidney disease with heart failure and stage 1 through stage 4 chronic kidney disease, or unspecified chronic kidney disease; I42.9 Cardiomyopathy, unspecified; E87.1 Hypo-osmolality and hyponatremia; G20 Parkinson's disease; E03.9 Hypothyroidism, unspecified; I48.2 Chronic atrial fibrillation; Z66 Do not resuscitate; Z51.5 Encounter for palliative care; R62.7 Adult failure to thrive; K59.09 Other constipation; I05.0 Rheumatic mitral stenosis; G30.1 Alzheimer's disease with late onset; F02.80 Dementia in other diseases classified elsewhere, unspecified severity, without behavioral disturbance, psychotic disturbance, mood disturbance, and anxiety; N18.9 Chronic kidney disease, unspecified; Z95.0 Presence of cardiac pacemaker; Z85.038 Personal history of other malignant neoplasm of large intestine; Z85.72 Personal history of non-Hodgkin lymphomas; Z87.11 Personal history of peptic ulcer disease; Z90.49 Acquired absence of other specified parts of digestive tract; Z82.49 Family history of ischemic heart disease and other diseases of the circulatory system; J15.9 Unspecified bacterial pneumonia

== ENCOUNTER 2017-07-29 14:40 | Inpatient (IN) | payer MEDICARE, MEDICAID ==
[~2017-07-29] VITALS: Ht 172.7 cm; Wt 64.6 kg
--- NOTE | ~2017-07-29 | PR ---
[place], [place] PROGRESS NOTE NAME: MINAL MICHELLE SR UNIT #: [id number] ROOM: 421 DOCTOR: SUSIE GUTHRIE MD BIRTHDATE: [birth year] DOS: 08/02/2017 SUBJECTIVE: The patient is looking much better today. He has his eyes open. He is pleasantly confused. PHYSICAL EXAMINATION: VITAL SIGNS: Blood pressure 112/84, heart rate 80 beats per minute, breathing 18 times per minute, temperature 98 degrees Fahrenheit. GENERAL APPEARANCE: Generalized weakness. HEENT AND NECK: Exam within normal limits. CARDIOVASCULAR SYSTEM: Heart rate is regular in rate and rhythm. S1 and S2 normally audible. LUNGS: Clear to auscultation. ABDOMEN: Soft, nontender. No obvious organomegaly. Bowel sounds are present. EXTREMITIES: Without significant cyanosis or edema. IMPRESSION: 1. The patient with urinary tract infection with Pseudomonas aeruginosa, being treated appropriately with antibiotics. 2. Urinary retention, treated with Donald catheter. 3. Dehydration and elevation of BUN and creatinine, improving with hydration with IV fluids. 4. Pacemaker placement and history of chronic atrial fibrillation. 5. Adult failure to thrive with poor prognosis in the long run. 6. PICC line placement for IV access and hydration and antibiotics. 7. Hypothyroidism, treated with supplements. SUSIE GUTHRIE MD CM:PNTRANS [phone] SUSIE GUTHRIE MD 08/02/17 2337 interface
--- NOTE | ~2017-07-29 | PR ---
[place], [place] PROGRESS NOTE NAME: MINAL MICHELLE SR UNIT #: [id number] ROOM: 421 DOCTOR: SUSIE GUTHRIE MD BIRTHDATE: [birth year] DOS: 07/31/2017 SUBJECTIVE: The patient is very weak, barely tries to communicate. OBJECTIVE: VITAL SIGNS: Blood pressure 140/66, heart rate 70 beats per minute, breathing 16 times per minute, temperature 98.4 degrees Fahrenheit. GENERAL APPEARANCE: Generalized weakness. Donald catheter in place. HEENT AND NECK: Exam within normal limits. CARDIOVASCULAR SYSTEM: Heart rate is regular in rate and rhythm. S1 and S2 normally audible. LUNGS: Clear to auscultation. ABDOMEN: Soft, nontender. No obvious organomegaly. Bowel sounds are present. EXTREMITIES: Without significant cyanosis or edema. IMPRESSION: 1. Chronic urinary retention, treated with Donald catheter. 2. Urinary tract infection with Pseudomonas aeruginosa, treated with IV Zosyn. 3. Acute over chronic kidney failure, kidney disease, being treated with hydration. Oral hydration being encouraged and we are trying to get an IV access, so the patient can be hydrated with IV fluids. 4. Poor intravenous access. We are working to get a PICC line placed. 5. Advance adult failure to thrive and poor prognosis. 6. Pacemaker placement and history of chronic atrial fibrillation. 7. Hypothyroidism. The patient on supplements. SUSIE GUTHRIE MD CM:PNTRANS [phone] SUSIE GUTHRIE MD 07/31/17 1535 interface
--- NOTE | ~2017-07-29 | PR ---
[place], [place] PROGRESS NOTE NAME: MINAL MICHELLE SR UNIT #: [id number] ROOM: 421 DOCTOR: SUSIE GUTHRIE MD BIRTHDATE: [birth year] DOS: 07/29/2017 SUBJECTIVE: The patient is more awake and alert, now getting hydration with IV fluids. VITAL SIGNS: Blood pressure 135/78, heart rate of 68 beats per minute, breathing 16 times per minute, temperature 98 degrees Fahrenheit. GENERAL APPEARANCE: The patient is alert and oriented x 3, in no visible distress. Generalized weakness. The patient pleasantly confused. HEENT AND NECK: Exam within normal limits. CARDIOVASCULAR SYSTEM: Heart rate is regular in rate and rhythm. S1 and S2 normally audible. LUNGS: Clear to auscultation. ABDOMEN: Soft, nontender. No obvious organomegaly. Bowel sounds are present. EXTREMITIES: Without significant cyanosis or edema. IMPRESSION: 1. The patient with urinary tract infection with pseudomonas. 2. Urine retention treated with Donald catheter. 3. Dehydration and elevation of BUN and creatinine improving with hydration with IV fluids. The patient also eating better. 4. PICC line placement for poor IV access. 5. Advanced adult failure to thrive and poor prognosis. 6. Pacemaker placement and history of chronic atrial fibrillation. 7. Hypothyroidism. The patient taking supplements. 8. I will try to get him to a senior care facility for rehabilitation. Blood cultures have been negative. SUSIE GUTHRIE MD CM:PNTRANS [phone] SUSIE GUTHRIE MD [id number] interface
--- NOTE | ~2017-07-29 | WRIGHTHP ---
[place], [place] PATIENT HISTORY AND PHYSICAL EXAM NAME: MINAL MICHELLE SR UNIT #: [id number] ROOM: 421 DOCTOR: SUSIE GUTHRIE MD BIRTHDATE: [birth year] DOS: HISTORY OF PRESENT ILLNESS: The patient is an 87-year-old gentleman with a past medical history of; 1. Old age and adult failure to thrive. 2. Hypothyroidism. 3. Pacemaker placement and history of chronic atrial fibrillation. 4. Recent bilateral lower lobe pneumonia. 5. Chronic constipation. The patient presented to the Emergency Department at [facility] and was seen by Dr. Cash for progressive decline in his health. The patient was found to have a urinary tract infection and he was also in acute kidney failure and mentally confused with metabolic encephalopathy and dehydration. After initial treatment with hydration in the Emergency Department, he was recommended for treatment and further management. After admission, the patient appears very weak, but he did eat reasonably well earlier on. He is unable to provide much history. REVIEW OF SYSTEMS: LUNGS: No increasing shortness of breath or wheezing. GASTROINTESTINAL: No nausea, vomiting or diarrhea, but he has chronic constipation. CARDIOVASCULAR: No chest pains or palpitations. FAMILY HISTORY: Noncontributory. ALLERGIES: No known drug allergies. FAMILY HISTORY: Noncontributory. HOME MEDICATIONS: Levothyroxine, DuoNebs and Coreg. PHYSICAL EXAMINATION: GENERAL: Awake, alert and very weak, generalized muscle weakness, unable to communicate much, in no visible distress, barely wakes up. LABORATORY DATA: Urine cultures are negative so far. Hemoglobin 13, otherwise normal CBC. BUN and creatinine of 33 and 1.4, improving with hydration with normal saline. Urine cultures growing Pseudomonas aeruginosa. IMPRESSION AND PLAN: 1. Urinary tract infection with Pseudomonas aeruginosa being treated with IV Zosyn. 2. Acute over chronic kidney disease with dehydration and elevation of BUN and creatinine improving with hydration and normal saline. 3. Poor intravenous access, which will be dealt with by trying to place a PICC line, which will be used for antibiotics and hydration. 4. Advance adult failure to thrive and poor prognosis. The patient maintains a DNR-CC code status. [place], [place] PATIENT HISTORY AND PHYSICAL EXAM NAME: MINAL MICHELLE SR UNIT #: [id number] ROOM: [facility] DOCTOR: SUSIE GUTHRIE MD BIRTHDATE: [birth year] 5. Pacemaker placement and history of chronic atrial fibrillation. 6. Hypothyroidism to be treated with thyroid supplements. SUSIE GUTHRIE MD CM:HISPHYS:PATIENT HISTORY AND PHYSICAL EXAMINATION [phone] SUSIE GUTHRIE MD 07/30/[id number] interface
--- NOTE | ~2017-07-29 | DS ---
[place], [place] DISCHARGE SUMMARY NAME: MINAL MICHELLE SR [facility] #: [id number] UNIT #: [id number] ROOM: 421 DOCTOR: SUSIE GUTHRIE MD BIRTHDATE: [birth year] DOS: The patient is an 87-year-old gentleman with a discharge diagnoses of: 1. Old age and failure to thrive with poor long-term prognosis. 2. Recent urinary tract infection with Pseudomonas aeruginosa and cystitis, treated. 3. Urinary retention treated with Donald catheter. 4. Dehydration with elevation of BUN and creatinine improved with hydration with normal saline. 5. Pacemaker placement with history of chronic atrial fibrillation. 6. PICC line placement for IV access. 7. Hypothyroidism. 8. Chronic constipation. HOSPITAL COURSE: The patient was treated recently for bilateral lower lobe pneumonia at [facility] and discharged back to [facility], but he came back this time with urinary infection and cystitis and growing Pseudomonas aeruginosa with increased mental confusion and lethargy and patient was not waking up. The patient was very weak and was diagnosed as having metabolic encephalopathy and dehydration with elevation of BUN and creatinine. The patient was admitted and started on hydration with IV fluids. Food and water were encouraged and the patient was treated with antibiotics appropriately. The patient has become more awake and alert, but he is still confused. The patient's was present with him today and would like him to be kept comfortable. The patient's daughter wanted his nutritional status improved. The patient worked with dietary which will be continued at the skilled nursing. He will be encouraged to eat. The patient's does not want PEG tube feeding for nutrition. This was discussed with her today. 1. Pacemaker placement for chronic atrial fibrillation with controlled heart rates. 2. Recent bilateral pneumonia, resolved. 3. Hypothyroidism, treated with supplements. 4. Chronic constipation, treated and controlled. 5. Old age and recurrent hospital admissions with adult failure to thrive, generalized muscle wasting and poor long-term prognosis. 6. Chronic kidney disease, stage IIIA. LABORATORY DATA: Chest x-ray with no acute abnormality PICC line in place. Blood cultures were negative. Urine culture results as mentioned above. DISCHARGE MANAGEMENT: Psyllium 1 packet daily, levothyroxine 75 mcg daily, DuoNeb every 4 hours as needed, Coreg 3.125 mg b.i.d., Augmentin 875 mg b.i.d. for 1 week. [place], [place] DISCHARGE SUMMARY NAME: MINAL MICHELLE SR UNIT #: [id number] ROOM: 421 DOCTOR: SUSIE GUTHRIE MD BIRTHDATE: [birth year] SUSIE GUTHRIE MD CM:DISCHARG [phone] SUSIE GUTHRIE MD 08/03/[id number] interface
[~2017-07-29 14:40] MED LIST changes: +ACETAMINOPHEN325 M2 PO; +AMOXICILLIN500 M3 PO; +COREG3.125 MG PO; +DUONEB 3 MG/3 ML3 M1 INH; +LEVOFLOXACIN500 MG PO; +LEVOTHYROXINE75 MCG PO; +METAMUCIL FIBE3.4 GM PO
[2017-07-29 14:47] VITALS: BP 127/77
--- NOTE | 2017-07-29 14:53 | NUR ---
PATIENT IS VERY DROWSY AND FALLS ASLEEP EASILY, PATIENT IS EASILY WOKEN AND RESPONDS APPROPRIATELY TO QUESTIONS. JULIUS SCHUMACHER
[2017-07-29 15:51] LABS: BASO # 0.1 10*3/uL (0.0-0.1); BASO % 1.1 % (0.0-1.0); EOS # 0.8 10*3/uL (0.0-0.4); EOS % 9.3 % (1.0-4.0); HEMATOCRIT 41.4 % (42.0-52.0); HEMOGLOBIN 13.5 g/dl (14.0-18.0); LYMPH # 1.5 10*3/uL (1.3-4.4); LYMPH % 17.7 % (27.0-41.0); MEAN CELL VOLUME 90.6 fl (80.0-94.0); MEAN CORPUSCULAR HGB 29.5 pg (27.0-31.0); MEAN CORPUSCULAR HGB CONC 32.6 g/dl (33.0-37.0); MEAN PLATELET VOLUME 11.6 fl (9.6-12.3); MONO # 0.8 10*3/uL (0.1-1.0); MONO % 9.2 % (3.0-9.0); NEUT # 5.3 10*3/uL (2.3-7.9); NEUT % 62.3 % (47.0-73.0); PLATELET COUNT AUTOMATED 153 10*3/uL (130-400); RED BLOOD COUNT 4.57 10*6/uL (4.50-5.90); RED CELL DISTRI WIDTH 15.6 % (0-14.5); WHITE BLOOD COUNT 8.5 10*3/uL (4.8-10.8)
[2017-07-29 16:07] LABS: ACT PARTIAL THROMBO TIME 27.7 SECONDS (20.8-31.5); INTERNATIONAL NORM RATIO 1.5 (2.0-3.5)
[2017-07-29 16:11] LABS: ALBUMIN 3.5 gm/dl (3.1-4.5); CKMB 1.7 ng/ml (0.5-3.6); CREATININE 1.74 mg/dL (0.70-1.30); MAGNESIUM 2.2 mg/dL (1.5-2.1); TOTAL PROTEIN 7.2 gm/dL (6.4-8.2); TROPONIN I 0.032 ng/ml (<0.045)
[2017-07-29 16:47] VITALS: BP 133/72
[2017-07-29 16:52] LABS: BILIRUBIN NEGATIVE (NEGATIVE); BLOOD 2+ (NEGATIVE); CLARITY SL CLOUDY (CLEAR); COLOR YELLOW (YELLOW); GLUCOSE NEGATIVE (NEGATIVE); KETONE NEGATIVE (NEGATIVE); LEUKO ESTERASE TRACE (NEGATIVE); NITRITE NEGATIVE (NEGATIVE); PH 5.5 (5.0-9.0); SPECIFIC GRAVITY >= 1.030 (1.005-1.030); UROBILINOGEN 0.2 E.U./dl (0.2-1.0)
[2017-07-29 16:59] LABS: BACTERIA 1+; EPITHELIAL CELLS 21-30; RBC 16-20 rbc/hpf (0-2)
[2017-07-29 19:12] VITALS: BP 147/82
--- NOTE | 2017-07-29 19:35 | NUR ---
REPORT RECEIVED FROM JULIUS FOWLER
--- NOTE | 2017-07-29 19:55 | NUR ---
Time: 1954 A 87 year old MALE admitted to 4E under services of DR. JERRI COX,SUSIE Treviño Pt. arrived via stretcher from ER. Chief complaint: CHANGE IN MENTAL STATUS. ARCADIO SCHAEFFER
[2017-07-29 20:00] VITALS: BP 129/58
[2017-07-29 20:06] VITALS: BP 129/58
[2017-07-29] MEDS ORDERED: DUONEB 3 MG/3 ML3 M1 INH (20:24)
--- NOTE | 2017-07-29 20:39 | NUR ---
NOTIFIED OF PATIENT'S ARRIVAL ON FLOOR. STATES HE WILL PUT IN ADMISSION ORDERS.
--- NOTE | 2017-07-29 20:45 | NUR ---
HOME MED REC UP TO DATE [facility].
[2017-07-30] VITALS: BP 132/45
--- NOTE | 2017-07-30 00:28 | NUR ---
NOTIFIED OF IV INFILTRATING. UNABLE TO OBTAIN NEW IV SITE AFTER MULTIPLE ATTEMPTS BY MULTIPLE RNs. PER , HE WILL REQUEST PICC LINE IN AM. IN THE MEANTIME, INSTRUCTED TO ORDER AUGMENTIN 875MG PO BID.
--- NOTE | 2017-07-30 00:40 | NUR ---
SPOKE WITH CHERIE AT [facility] REGARDING PT'S VACCINE HISTORY. STATES HIS LAST FLU VACCINE WAS ADMINISTERED 08/2016. LAST PNEUMOVACCINE UNSURE. STATES HE REFUSED VACCINE PER THEIR RECORDS TWO YEARS AGO. PATIENT STATES HE DOES NOT WANT PNEUMONIA VACCINE AT THIS TIME.
--- NOTE | 2017-07-30 01:05 | NUR ---
MCKEON CATHETER DISCONTINUED AT THIS TIME PER 'S REQUEST.
--- NOTE | 2017-07-30 04:15 | NUR ---
PO AUGMENTIN GIVEN PER ORDER AT THIS TIME. WARM BLANKETS PROVIDED PER REQUEST. WILL CONTINUE TO MONITOR. CALL LIGHT LEFT IN REACH.
[2017-07-30 06:21] LABS: BASO # 0.1 10*3/uL (0.0-0.1); BASO % 0.9 % (0.0-1.0); EOS # 0.6 10*3/uL (0.0-0.4); EOS % 6.9 % (1.0-4.0); HEMATOCRIT 39.1 % (42.0-52.0); LYMPH # 1.7 10*3/uL (1.3-4.4); MEAN CELL VOLUME 89.7 fl (80.0-94.0); MEAN CORPUSCULAR HGB 29.8 pg (27.0-31.0); MEAN CORPUSCULAR HGB CONC 33.2 g/dl (33.0-37.0); MONO # 0.8 10*3/uL (0.1-1.0); MONO % 8.9 % (3.0-9.0); NEUT # 5.6 10*3/uL (2.3-7.9); PLATELET COUNT AUTOMATED 135 10*3/uL (130-400); RED BLOOD COUNT 4.36 10*6/uL (4.50-5.90); RED CELL DISTRI WIDTH 15.4 % (0-14.5); WHITE BLOOD COUNT 8.7 10*3/uL (4.8-10.8)
[2017-07-30 06:23] LABS: CREATININE 1.48 mg/dL (0.70-1.30); POTASSIUM 3.7 mmol/L (3.5-5.1)
[2017-07-30 08:00] VITALS: BP 144/68
--- NOTE | 2017-07-30 08:30 | NUR ---
PT IS LTC AT [facility] AND CAN RETURN WHEN STABLE FOR DC.
--- NOTE | 2017-07-30 08:44 | NUR ---
PHYSICAL THERAPY PAtient receiving breathing treatment at this time. Thank you for this referral. Aaliyah Rocha,PT
[2017-07-30 12:00] VITALS: BP 164/79
--- NOTE | 2017-07-30 14:21 | NUR ---
FAMILY IN TO SEE PATIENT AT THIS TIME.
--- NOTE | 2017-07-30 17:09 | NUR ---
IN TO SEE PATIENT AND AWARE OF NO IV SITE AND MINIMAL URINE OUTPUT.
--- NOTE | 2017-07-30 17:56 | NUR ---
LUCÍA MICHELLE JR CALLED AT THIS TIME REGARDING CONSENT FOR PICC LINE INSERTION. OKAY FOR PICC LINE TO BE INSERTED PER ORDER.
[2017-07-30 20:00] VITALS: BP 140/62; BP 142/64
[2017-07-31] VITALS: BP 131/86
--- NOTE | 2017-07-31 06:34 | NUR ---
DR. TRIPLETT CONTACTED REGARDING PATIENT NOT VOIDING AFTER MCKEON REMOVAL. SEE NEW ORDERS.
[2017-07-31 06:56] LABS: CREATININE 1.54 mg/dL (0.70-1.30); POTASSIUM 3.7 mmol/L (3.5-5.1)
[2017-07-31 08:00] VITALS: BP 140/66
--- NOTE | 2017-07-31 08:00 | NUR ---
PT. AWAKE AND ALERT TO PLACE AND SELF IN BED. PT. RE-ORIENTED TO TIME. CATHETER SITE ASYMPTOMATIC, URINE OUTPUT DARK ANGELA. CALL LIGHT WITHIN REACH, BED IN LOWEST POSITION, WHEELS LOCKED. SEE SHIFT ASSESSMENT.
[2017-07-31 11:32] VITALS: BP 118/73
--- NOTE | 2017-07-31 12:55 | NUR ---
PT. TAKEN TO OR BY CART FOR PICC INSERTION.
--- NOTE | 2017-07-31 13:54 | NUR ---
PHYSICAL THERAPY Physical Therapy Evaluation completed this date. See eval document for further details. Will begin PT intevention to address impairments of decreased ROM, decreased strength, decreased functional mobility I, and difficulty ambulating. Recommend d/c back to the [facility] with skilled PT [place] [address] based on chart review and PT eval. Inge Dickens, PT
--- NOTE | 2017-07-31 14:35 | NUR ---
DR GUTHRIE NOTIFED THAT PICC IN GOOD PLACEMENT PER CXR. ORDER RECIEVED.
[2017-07-31 16:00] VITALS: BP 130/80
[2017-07-31 20:00] VITALS: BP 150/73
[2017-08-01] VITALS: BP 153/73
--- NOTE | 2017-08-01 00:37 | NUR ---
24 HR chart check completed.
--- NOTE | 2017-08-01 07:55 | NUR ---
PT. AWAKE, ALERT, ORIENTED TO SELF ONLY UPON ENTERING ROOM. PT. RE-ORIENTED TO PLACE, TIME, ROOM, AND CALL LIGHT. PT. COUGHING UP THICK, YELLOW SPUTUM, REQUESTED PA GIVE ORAL HYGIENE WITH BED BATH D/T DRY, MUCUS FILLED MOUTH. PICC IN RT. AC ASYMPTOMATIC WITH NS @ 60ML. CALL LIGHT WITHIN REACH, BED IN LOWEST POSITION, WHEELS LOCKED. SEE SHIFT ASSESSMENT.
[2017-08-01 08:00] VITALS: BP 137/61
[2017-08-01 08:33] LABS: CREATININE 1.73 mg/dL (0.70-1.30); POTASSIUM 3.9 mmol/L (3.5-5.1)
--- NOTE | 2017-08-01 11:24 | NUR ---
PHYSICAL THERAPY Esteban seen this AM 1:1 for his therapy session, Pt supinr in bed, and having parkinson's, DEM. With much verbal cueing for transfer, gait and safety. Supine/sit MOD A X 1, sitting balance CG X 1, once up sitting X 6 min. Sit/stand and standing balance with wheeled walker MOD A X 1. Gait total 25' X 2, one sitting rest and Pt has IV Pole gait was slow and steady anain cueing for safety, turns. Esteban wanting to go back to bed, back supine MOD A X 1, pt with call light, bed alarm on and his nurse in. SHADI CHIANG SUPERVISOR IN CHARGE.
[2017-08-01 12:00] VITALS: BP 134/87
[2017-08-01 16:00] VITALS: BP 135/78
[2017-08-01 20:00] VITALS: BP 132/76
[2017-08-02] VITALS: BP 159/75
--- NOTE | 2017-08-02 07:37 | NUR ---
Shift chart check completed.
[2017-08-02 08:00] VITALS: BP 140/80
--- NOTE | 2017-08-02 08:00 | NUR ---
PATIENT IS RESTING IN BED. DENIES ANY PAIN OR DISCOMFORT. PATIENT HAS A STUDENT FROM [facility] TODAY THAT WILL BE ASSESSING, CHARTING, AND PASSING MEDS. PATIENT IS ORIENTED TO PERSON. LUNGS DIMINISHED BUT CLEAR.DENIES ANY CP, PPP. NORMO ACTIVE BOWEL SOUNDS. MCKEON DRAINING CLEAR YELLOW URINE. SKIN IS DRY AND INTACT. NO EDEMA. NO CONCERNS AT THIS TIME. WILL CONTINUE TO MONITOR.
--- NOTE | 2017-08-02 10:15 | NUR ---
PHYSICAL THERAPY Esteban having a better day today, Pt with parkinson's, DEM and just slow with everything. Pt with IV Pole today. Transfer supine/sit MOD A X 1, sitting balance CGA X 1, X 7 min. Sit/stand MOD A X 1, up on wheeled walker standing balance. gait total 62' X 1, much verbal cueing for gait, walker, gait safety and turns. Pt wanting to go back to bed after this, Pt with call light bed alarm on. SHADI CHIANG CHIPPER OPERATOR.
--- NOTE | 2017-08-02 10:30 | NUR ---
sITTING AT SIDE OF BED. STATES HE WANTS TO GO HOME, REFUSING MEDICATIONS AND AM CARE AT THIS TIME. DISCUSSED HIS CONCERNS. ASSISTED UP IN CHAIR. WATCHING TV. JEANETTE CONNOR
[2017-08-02 12:13] VITALS: BP 144/80
--- NOTE | 2017-08-02 12:50 | NUR ---
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
[2017-08-02 16:00] VITALS: BP 112/84
[2017-08-02 20:00] VITALS: BP 154/90
--- NOTE | 2017-08-02 21:12 | NUR ---
SPOKE WITH DR. GUTHRIE PERTAINING TO PATIENTS PERIODS OF APNEA. DR. GUTHRIE STATED THAT HE HAS A POOR PROGNOSIS AND THAT HE HAS SEVERE HEART FAILURE. DR. GUTHRIE ORDERED TO STOP FLUDS
[2017-08-03] VITALS: BP 149/83
--- NOTE | 2017-08-03 07:50 | NUR ---
Shift chart check completed.
[2017-08-03 08:00] VITALS: BP 150/88
[2017-08-03 12:00] VITALS: BP 152/80
[2017-08-03 16:00] VITALS: BP 112/84
[2017-08-03] MEDS ORDERED: AUGMENTIN 875875 MG PO (19:10)
[2017-08-03 20:00] VITALS: BP 142/91; BP 152/98
--- NOTE | 2017-08-03 20:10 | NUR ---
DR. GUTHRIE NOTIFIED OF PT ELEVATED HR AND BP AND S/S OF DISTRESS WITH 20 SEC PERIODS OF APNEA AND LABORED RESPS. SAID TO WATCH PT FOR AN HR AND NOTIFY HIM OF ANY CHANGES.
--- NOTE | 2017-08-03 21:18 | NUR ---
PT LEAVING FLOOR WITH EMS VIA STRETCHER. FAMILY TOOK ALL BELONGINGS EARLIER.
--- NOTE | 2017-08-03 21:26 | NUR ---
REPORT CALLED TO MACI AT [facility].
--- NOTE | 2017-08-05 08:01 | NUR ---
PHYSICAL THERAPY CO-SIGN I approve of the Phyical Therapy notes written above. BENTLEY FLETCHER PT
== END 2017-08-03 21:19 | disposition home or self-care (01) | DRG 682 ==
LOC: ED 14:40 → 4E 17:45
PROVIDERS: Emergency Medicine; ADMIT Internal Medicine
PROC: 02HV33Z Insertion of Infusion Device into Superior Vena Cava, Percutaneous Approach (ICD-10-PCS; principal; 2017-07-31)
DX: N17.9 Acute kidney failure, unspecified (principal); G93.41 Metabolic encephalopathy; G20 Parkinson's disease; N39.0 Urinary tract infection, site not specified; I48.2 Chronic atrial fibrillation; E86.0 Dehydration; I13.0 Hypertensive heart and chronic kidney disease with heart failure and stage 1 through stage 4 chronic kidney disease, or unspecified chronic kidney disease; I50.9 Heart failure, unspecified; B96.5 Pseudomonas (aeruginosa) (mallei) (pseudomallei) as the cause of diseases classified elsewhere; R62.7 Adult failure to thrive; E03.9 Hypothyroidism, unspecified; Z66 Do not resuscitate; Z51.5 Encounter for palliative care; K59.09 Other constipation; N18.9 Chronic kidney disease, unspecified; Z85.038 Personal history of other malignant neoplasm of large intestine; Z87.440 Personal history of urinary (tract) infections; Z95.0 Presence of cardiac pacemaker; Z79.899 Other long term (current) drug therapy; Z85.72 Personal history of non-Hodgkin lymphomas; Z87.11 Personal history of peptic ulcer disease; Z90.49 Acquired absence of other specified parts of digestive tract; Z84.89 Family history of other specified conditions